=== PATIENT | female | born 1995 | race Caucasian/White ===

== ENCOUNTER 2016-04-28 12:03 | Inpatient (IN) | payer OTHER ==
[~2016-04-28] VITALS: Ht 165.1 cm; Wt 90.1 kg
[2016-04-28 12:17] VITALS: BP 111/78; PULSE 95; RESP 20; Ht 165.1 cm; Wt 90.1 kg
[2016-04-28] MEDS ORDERED: FOLI-49 PO (12:17)
[2016-04-28] MEDS ORDERED: PRENAT PO (12:17)
--- NOTE | 2016-04-28 12:55 | TRIAGE ---
OB Triage Datetime Report Generated by CPN: 04/28/2016 12:55 Datetime: 04/28/2016 12:25 Vaginal Exam Dilatation (cms): 1.0 Effacement (%): 40 Station: -3 Exam By: PLUMMER/KHEMANI Vaginal Bleeding: None Cervix, Consistency: Firm Cervix, Position: Posterior Datetime: 04/28/2016 12:14 Assessment Type: Triage Maternal Assessment Level of Consciousness: Fully Conscious DTR's/Clonus: DTRs 2+; No Clonus Headache: Denies Blurred Vision: No Respiratory Effort: Unlabored; Regular Rhythm; Equal Expansion Nausea/Vomiting: Denies RUQ Epigastric Pain: Denies Lower Extremities Edema: None Degree: None Upper Extremities Edema: None Degree: None Facial Edema: None Fall Risk Assessment History of Falling: (0) No Secondary Diagnosis: (0) No Ambulatory Aid: (0) Bedrest/Nurse Assist IV Therapy: (0) No Gait: (0) Normal/Bedrest/Immobile Mental Status: (0) Oriented to Own Ability Fall Score: 0 Fall Risk Score Definition: No Risk: No action required Datetime: 04/28/2016 12:12 Time of Arrival: 04/28/2016 12:00 EGA: 37.2 Arrived By: Ambulatory Arrived From: Office Chief Complaint: PT SENT INTO EVAL FOR HBP Movement: Present Contractions: Denies/Absent Rupture of Membranes: Denies Vaginal Bleeding: None Vaginal Discharge: Present Recent Sexual Intercouse: Yes Abdominal Trauma: Not Applicable Patient Complaints: None Provider Notified: [facility] Initial Plan: EFM, Datetime: 04/27/2016 07:48 Labor Evaluation Frequency: occassional Monitor Mode: External Quality: Mild Contraction Comments: pt. denies some noted w/ review of strip Heart Rate FHR Baseline Rate: 125 Monitor Mode: External US Variability: Moderate 6-25 bpm Accelerations: 15X15 Decelerations: None Category: Category I Datetime: 04/27/2016 07:39 Resting Tone Jeddo: Relaxed Datetime: 04/27/2016 07:38 Pain Assessment Pain Scale: 4 Pain Presence: Constant Pain Type: Dull Datetime: 04/27/2016 07:16 Maternal Assessment Level of Consciousness: Fully Conscious DTR's/Clonus: DTRs 2+ Headache: Frontal Blurred Vision: No Respiratory Effort: Unlabored Breath Sounds, Left: Clear and Equal Breath Sounds, Right: Clear and Equal Nausea/Vomiting: Denies RUQ Epigastric Pain: Denies Heart Rate FHR Baseline Rate: 125 Variability: Moderate 6-25 bpm Accelerations: 15X15 Pain Assessment Pain Scale: 6 Pain Presence: Constant Pain Type: Dull Pain Location: Head Pain Assessment Comments: pt. states h.a. since yesterday w/ a runny nose. pt. has not take any ty lenol and denies any elevated bp's during her pregnacy. Datetime: 04/27/2016 06:19 Labor Evaluation Frequency: 2-4 Monitor Mode: External Duration (sec)2399: 40-60 Pattern: Normal: <= 5 Contractions in 10 Minutes Resting Tone Jeddo: Relaxed Heart Rate FHR Baseline Rate: 130 Monitor Mode: External US Variability: Moderate 6-25 bpm Accelerations: 15X15 Decelerations: None Category: Category I Datetime: 04/27/2016 06:14 Pain Assessment Pain Scale: 7 Pain Presence: Constant Pain Type: Pressure; Ache Pain Location: Head Pain Relief Measures: Comfort Measures Datetime: 04/27/2016 05:33 Stage of : OB Triage Nausea/Vomiting: Denies Labor Evaluation Frequency: 2-4 Monitor Mode: External Duration (sec)2399: 40-60 Pattern: Normal: <= 5 Contractions in 10 Minutes Resting Tone Jeddo: Relaxed Heart Rate FHR Baseline Rate: 130 Monitor Mode: External US Variability: Moderate 6-25 bpm Accelerations: 15X15 Decelerations: None Category: Category I Comments: baby moving per mom and audible on monitor Pain Assessment Pain Scale: 8 Pain Presence: Constant Pain Type: Pressure; Ache Pain Location: Perineum; Head Pain Relief Measures: Comfort Measures Datetime: 04/27/2016 04:48 Vaginal Exam Dilatation (cms): 0.0 Vaginal Bleeding: None Cervix, Consistency: Soft Cervix, Position: Midposition Datetime: 04/27/2016 04:40 Stage of : OB Triage Maternal Assessment Level of Consciousness: Fully Conscious DTR's/Clonus: DTRs 2+; No Clonus Headache: Frontal Blurred Vision: No Nausea/Vomiting: Present RUQ Epigastric Pain: Denies Facial Edema: None Labor Evaluation Frequency: IRREG Monitor Mode: External Duration (sec)2399: 40-50 Pattern: Normal: <= 5 Contractions in 10 Minutes Resting Tone Jeddo: Relaxed Heart Rate FHR Baseline Rate: 135 Monitor Mode: External US Variability: Moderate 6-25 bpm Accelerations: 15X15 Decelerations: None Category: Category I Datetime: 04/27/2016 04:33 Monitor Mode: External US Datetime: 04/27/2016 04:31 Stage of : OB Triage Maternal Assessment Level of Consciousness: Fully Conscious DTR's/Clonus: DTRs 2+; No Clonus Headache: Denies Blurred Vision: No Respiratory Effort: Unlabored; Regular Rhythm; Equal Expansion Nausea/Vomiting: Denies RUQ Epigastric Pain: Denies Lower Extremities Edema: None Degree: None Upper Extremities Edema: None Degree: None Facial Edema: None Fall Risk Assessment History of Falling: (0) No Secondary Diagnosis: (0) No Ambulatory Aid: (0) Bedrest/Nurse Assist IV Therapy: (0) No Gait: (0) Normal/Bedrest/Immobile Mental Status: (0) Oriented to Own Ability Fall Score: 0 Fall Risk Score Definition: No Risk: No action required Pain Assessment Pain Scale: 8 Pain Presence: Constant Pain Type: Pressure; Ache Pain Location: Perineum; Head Pain Relief Measures: Comfort Measures Datetime: 04/27/2016 04:27 Time of Arrival: 04/27/2016 04:05 EGA: 37.1 Arrived By: Wheelchair Arrived From: Emergency Dept Chief Complaint: HEADACHE Movement: Present Contractions: Denies/Absent Rupture of Membranes: Denies Vaginal Bleeding: None Vaginal Discharge: Denies Recent Sexual Intercouse: Denies Abdominal Trauma: Not Applicable Patient Complaints: Headache; Other Additional Patient Complaints: VAGINAL PRESSURE Time Provider Notified: 04/27/2016 04:50 Provider Notified: [facility] Initial Plan: VITAL SIGNS, EFM. Datetime: 04/27/2016 04:18 Monitor Mode: External Monitor Mode: External US
[2016-04-28] MEDS ORDERED: IBUPROFEN 600 MG TAB PO PRN (13:00)
[2016-04-28] MEDS ORDERED: LACTATED RINGER'S 1,000 ML IV PRN (13:00)
[2016-04-28] MEDS ORDERED: MISOPROSTOL 200 MCG TAB PR PRN (13:00)
[2016-04-28] MEDS: LACTATED RINGER'S 1,000 ML IV SCH ×2 (13:00→21:01)
[2016-04-28] MEDS ORDERED: DINOPROSTONE 10 MG VAG SUPP VAG ONE (13:00)
[2016-04-28] MEDS ORDERED: AMPICILLIN 2 GM/NS (PMX) 100 ML IV ONE (13:00)
[2016-04-28] MEDS ORDERED: OXYTOCIN 30 UNITS/LR 500 ML IV SCH ×2 (13:00)
[2016-04-28] MEDS ORDERED: CARBOPROST 250 MCG INJ IM PRN (13:00)
[2016-04-28] MEDS ORDERED: OXYTOCIN 30 UNITS/LR 500 ML IV PRN (13:00)
[2016-04-28] MEDS ORDERED: BUTORPHANOL 2 MG INJ IV PRN (13:00)
[2016-04-28] MEDS ORDERED: LIDOCAINE 1% (MPF) 30 ML INJ INJ PRN (13:00)
[2016-04-28] MEDS ORDERED: METHYLERGONOVINE 0.2 MG INJ IM PRN (13:00)
[2016-04-28 13:41] LABS: BASOPHILS % 0.4 % (0.0-2.0); EOSINOPHILS # 0.1 10^3/ul (0.0-0.5); EOSINOPHILS % 0.7 % (0.0-7.0); HEMATOCRIT 37.6 % (37.0-47.0); HEMOGLOBIN 12.7 g/dl (12.0-16.0); LYMPHOCYTES % 11.2 % (15.0-51.0); MEAN CORPUSCULAR HGB CONC 33.9 g/dl (32.0-37.0); MEAN CORPUSCULAR VOLUME 88.6 fl (82.0-101.0); MEAN PLATELET VOLUME 10.5 fl (7.4-10.4); MONOCYTE # 0.4 10^3/ul (0.3-0.9); MONOCYTES % 4.5 % (0.0-11.0); NEUTROPHIL # 7.6 10^3/ul (1.6-7.5); NEUTROPHILS % 83.2 % (39.0-77.0); PLATELET COUNT 159 10^3/UL (140-440); RED BLOOD COUNT 4.24 10^6/ul (4.20-5.40); RED CELL DISTRIBUTION WIDTH 13.1 % (11.5-14.5); UNCORRECTED WBC 9.1 10^3/ul (4.8-10.8); WHITE BLOOD COUNT 9.1 10^3/ul (4.8-10.8)
[2016-04-28 13:46] LABS: INR 0.91; PROTIME 12.3 Sec (12.2-14.2)
[2016-04-28 13:47] LABS: PARTIAL THROMBOPLASTIN TIME 24.1 Sec (25.0-35.0)
[2016-04-28 13:51] LABS: CONDITION 1
--- NOTE | 2016-04-28 14:44 | RADRPT ---
PROCEDURE: Limited OB ultrasound CLINICAL INDICATION: Traction was TECHNIQUE: Sonographic evaluation to assess the position was performed. Transabdominal imag ing of the gravid uterus was performed. COMPARISON: No prior exam is available for comparison. FINDINGS: There is a single live intrauterine with a heart rate of 143 bpm. position is cephalic. The placenta is anterior. IMPRESSION: Cephalic presentation. RPTAT: HH .Ayla Campbell MD, MD Date Time Electronically viewed and signed by .Ayla Campbell MD, on 04/28/2016 14:43 .G/
[2016-04-28] MEDS: AMPICILLIN 1 GM/NS (PMX) 50 ML IV SCH ×2 (17:09→21:00)
[2016-04-28] MEDS ORDERED: ACETAMINOPHEN 500 MG TAB PO PRN (23:00)
[2016-04-29] MEDS: AMPICILLIN 1 GM/NS (PMX) 50 ML IV SCH ×6 (01:40→21:40)
[2016-04-29] MEDS ORDERED: DINOPROSTONE 10 MG VAG SUPP VAG ONE (06:30)
[2016-04-29] MEDS: LACTATED RINGER'S 1,000 ML IV SCH ×3 (06:35→22:58)
[2016-04-29] MEDS ORDERED: OXYTOCIN 30 UNITS/LR 500 ML IV SCH (21:30)
[2016-04-30] MEDS: AMPICILLIN 1 GM/NS (PMX) 50 ML IV SCH ×6 (01:33→21:36)
[2016-04-30] MEDS: LACTATED RINGER'S 1,000 ML IV SCH ×2 (08:45→16:54)
[2016-04-30] MEDS ORDERED: FENTAnyl 2MCG/ML-ROPIV 0.2% 100 ML ONE (17:02)
[2016-04-30 17:48] LABS: BASOPHILS % 0.2 % (0.0-2.0); EOSINOPHILS # 0.1 10^3/ul (0.0-0.5); EOSINOPHILS % 0.9 % (0.0-7.0); HEMATOCRIT 36.6 % (37.0-47.0); HEMOGLOBIN 12.5 g/dl (12.0-16.0); LYMPHOCYTES # 1.4 10^3/ul (0.8-2.9); LYMPHOCYTES % 15.2 % (15.0-51.0); MEAN CORPUSCULAR HEMOGLOBIN 30.1 pg (29.0-33.0); MEAN CORPUSCULAR VOLUME 88.4 fl (82.0-101.0); MEAN PLATELET VOLUME 9.7 fl (7.4-10.4); MONOCYTE # 0.4 10^3/ul (0.3-0.9); MONOCYTES % 4.1 % (0.0-11.0); NEUTROPHIL # 7.1 10^3/ul (1.6-7.5); NEUTROPHILS % 79.6 % (39.0-77.0); PLATELET COUNT 168 10^3/UL (140-440); RED BLOOD COUNT 4.14 10^6/ul (4.20-5.40); RED CELL DISTRIBUTION WIDTH 13.6 % (11.5-14.5)
[2016-04-30 17:50] LABS: CONDITION 1
[2016-04-30 18:04] LABS: ALBUMIN 3.1 g/dl (3.3-4.9)
[2016-04-30 18:07] LABS: ALBUMIN/GLOBULIN RATIO 0.93; BILIRUBIN,INDIRECT 1.1 mg/dl (0-1.1); BILIRUBIN,TOTAL 1.1 mg/dl (0.2-1.3); CREATININE 0.41 mg/dl (0.44-1.00); TOTAL PROTEIN 6.4 g/dl (6.1-8.1)
[2016-04-30 18:08] LABS: CALCIUM 8.8 mg/dl (8.4-10.2)
[2016-04-30 18:17] LABS: POTASSIUM 2.8 mmol/L (3.5-5.1)
[2016-04-30] MEDS ORDERED: POTASSIUM CHLORIDE 250 ML IVPB ONE (19:00)
[2016-04-30] MEDS ORDERED: FENTAnyl 2MCG/ML-ROPIV 0.2% 100 ML BAG EPI SCH (19:30)
[2016-04-30] MEDS ORDERED: NALOXONE (0.4 MG/ML) INJ IV PRN (19:30)
[2016-05-01 00:10] LABS: ALBUMIN 3.1 g/dl (3.3-4.9)
[2016-05-01 00:11] LABS: POTASSIUM 3.6 mmol/L (3.5-5.1)
[2016-05-01 00:13] LABS: BILIRUBIN,INDIRECT 1.1 mg/dl (0-1.1); BILIRUBIN,TOTAL 1.1 mg/dl (0.2-1.3); CREATININE 0.45 mg/dl (0.44-1.00); TOTAL PROTEIN 6.2 g/dl (6.1-8.1)
[2016-05-01 00:14] LABS: CALCIUM 8.6 mg/dl (8.4-10.2)
[2016-05-01] MEDS: LACTATED RINGER'S 1,000 ML IV SCH ×4 (00:39→20:36)
[2016-05-01] MEDS: AMPICILLIN 1 GM/NS (PMX) 50 ML IV SCH ×6 (01:00→21:00)
[2016-05-01 06:11] LABS: ALBUMIN 2.8 g/dl (3.3-4.9); POTASSIUM 3.3 mmol/L (3.5-5.1)
[2016-05-01 06:13] LABS: BILIRUBIN,INDIRECT 1.1 mg/dl (0-1.1); BILIRUBIN,TOTAL 1.1 mg/dl (0.2-1.3); CREATININE 0.47 mg/dl (0.44-1.00)
[2016-05-01 06:14] LABS: ALBUMIN/GLOBULIN RATIO 0.9; CALCIUM 8.3 mg/dl (8.4-10.2); TOTAL PROTEIN 5.9 g/dl (6.1-8.1)
[2016-05-01] MEDS ORDERED: POTASSIUM CHLORIDE 250 ML IVPB ONE (07:00)
[2016-05-01] MEDS: DEXTROSE 5%-LR 1,000 ML IV SCH ×3 (07:42→21:32)
[2016-05-01] MEDS ORDERED: DINOPROSTONE 10 MG VAG SUPP VAG ONE (10:00)
[2016-05-01] MEDS ORDERED: ONDANSETRON 4 MG INJ IV STA (17:28)
[2016-05-02] MEDS: AMPICILLIN 1 GM/NS (PMX) 50 ML IV SCH ×2 (01:00→05:00)
[2016-05-02] MEDS: LACTATED RINGER'S 1,000 ML IV SCH (04:36)
[2016-05-02] MEDS: DEXTROSE 5%-LR 1,000 ML IV SCH (05:22)
[2016-05-02 07:06] LABS: BASOPHILS % 0.3 % (0.0-2.0); EOSINOPHILS # 0.1 10^3/ul (0.0-0.5); EOSINOPHILS % 1.6 % (0.0-7.0); HEMATOCRIT 32.2 % (37.0-47.0); LYMPHOCYTES # 1.7 10^3/ul (0.8-2.9); LYMPHOCYTES % 23.9 % (15.0-51.0); MEAN CORPUSCULAR HEMOGLOBIN 30.5 pg (29.0-33.0); MEAN CORPUSCULAR HGB CONC 34.2 g/dl (32.0-37.0); MEAN CORPUSCULAR VOLUME 89.2 fl (82.0-101.0); MEAN PLATELET VOLUME 10.2 fl (7.4-10.4); MONOCYTE # 0.4 10^3/ul (0.3-0.9); MONOCYTES % 6.1 % (0.0-11.0); NEUTROPHIL # 4.7 10^3/ul (1.6-7.5); NEUTROPHILS % 68.1 % (39.0-77.0); PLATELET COUNT 141 10^3/UL (140-440); RED BLOOD COUNT 3.61 10^6/ul (4.20-5.40); RED CELL DISTRIBUTION WIDTH 13.5 % (11.5-14.5)
[2016-05-02 07:16] LABS: CONDITION 1
[2016-05-02 07:17] LABS: ALBUMIN 2.7 g/dl (3.3-4.9); CHLORIDE 107 mmol/L (97-110)
[2016-05-02 07:18] LABS: POTASSIUM 3.8 mmol/L (3.5-5.1); SODIUM 142 mmol/L (135-144)
[2016-05-02 07:20] LABS: ALANINE AMINOTRANSFERASE 22 IU/L (13-69); ALBUMIN/GLOBULIN RATIO 0.96; ALKALINE PHOSPHATASE 119 IU/L (42-121); ANION GAP 13 (8-16); ASPARTATE AMINO TRANSFERASE 16 IU/L (15-46); BILIRUBIN,INDIRECT 0.7 mg/dl (0-1.1); BILIRUBIN,TOTAL 0.7 mg/dl (0.2-1.3); CARBON DIOXIDE 26 mmol/L (21-31); CREATININE 0.45 mg/dl (0.44-1.00); GLUCOSE 75 mg/dl (70-220); TOTAL PROTEIN 5.5 g/dl (6.1-8.1)
[2016-05-02 07:21] LABS: BLOOD UREA NITROGEN < 2 mg/dl (7-20); CALCIUM 8.4 mg/dl (8.4-10.2)
--- NOTE | 2016-05-02 08:29 | PD.PPDC ---
TRACER LATHE SET UP OPERATOR Discharge Instruction Condition Patient Condition: Good Diet Diet: Resume Regular Diet Activity/Restrictions Activity: Normal Activity Restrictions: No Exercising No Lifting No Driving No Sexual Activity Nothing in the Vagina No [place] No Tampons, douche Follow-up Follow-up with Physician: 2, Day/Days SANTA FIORE MD May 02, 2016 08:29
[2016-05-02 09:50] LABS: SCRET 0.45 mg/dl (0.44-1.00)
--- NOTE | 2016-05-02 10:06 | DS ---
Date/Time of Note Date/Time of Note DATE: 05/02/16 TIME: 08:34 Obstetrical Discharge Record Final Diagnosis Final Diagnosis: not delivered Condition on Discharge Physical Assessment Last Vitals: This is a 37-1/2 weeks 1 para 0 who originally was admitted because of the headache suspected of -induced hypertension admitted to hospital underwent Cervidil induction followed with Pitocin induction , since patient,s all laboratory reports were within normal and her symptoms of PIH was negative despite of findings at [facility]. Perinatology consult requested recommendation was follow-up as an outpatient, biophysical profile 2 times per week. And continue care at [facility] Voiding: Yes Bowel Movement: Yes Breast: Soft, non-tender Fundus: Other (37/5weeks uterus) Calf Tenderness: No Patient Condition: Good SANTA FIORE MD May 02, 2016 09:43
== END 2016-05-02 09:28 | disposition home or self-care (01) | DRG 775 ==
LOC: OBT 12:03 → L-D 12:06 → OBT 12:42 → L-D 12:43
PROVIDERS: ADMIT Obstetrics & Gynecology; ATTEND Obstetrics & Gynecology
PROC: 10E0XZZ Delivery of Products of Conception, External Approach (ICD-10-PCS; principal; 2016-04-30)
PROC: 3E0P7GC Introduction of Other Therapeutic Substance into Female Reproductive, Via Natural or Artificial Opening (ICD-10-PCS; 2016-04-30)
DX: O13.4 Gestational [pregnancy-induced] hypertension without significant proteinuria, complicating childbirth (principal); Z37.0 Single live birth; Z3A.37 37 weeks gestation of pregnancy
CPT/HCPCS: 36415; 62319; 76815; 80053; 82575; 82962; 84132; 84156; 84560; 85025; 85610; 85730; 86592; 86900; 86901; 87340; G0463; J0290; J2405; J3010; J3480; J7120; J7121

== ENCOUNTER 2016-05-04 13:28 | Inpatient (IN) | payer OTHER ==
[~2016-05-04] VITALS: Ht 165.1 cm; Wt 95.5 kg
[~2016-05-04 13:28] MED LIST: FOLI-49 PO; PRENAT PO
[2016-05-04 14:16] VITALS: Ht 165.1 cm; Wt 95.5 kg
--- NOTE | 2016-05-04 14:46 | RADRPT ---
PROCEDURE: US OB biophysical profile. CLINICAL INDICATION: decreased movements, PIH TECHNIQUE: Multiple sonographic images of the pelvis were obtained. The images were reviewed on a PACS workstation. COMPARISON: 04/28/2016 FINDINGS: There is a single viable intrauterine gestation. Cardiac activity is present with 128 beats per min [place]. There is a vertex presentation. The placenta is anterior. There is no evidence of placental abruption. There is a normal amount of amniotic fluid with an ABHIJIT = 9.8 cm. Biophysical profile: movement 2/2 tone 2/2. breathing 2/2 ABHIJIT 2/2 Total 12/04 RPTAT: AA . IMPRESSION: Normal biophysical profile. . .Neal Rodriguez MD, MD Date Time Electronically viewed and signed by .Neal Rodriguez MD, MD on 05/04/2016 14:45 .S/
[2016-05-04 15:07] LABS: ADD UMIC NO; URINE BILIRUBIN (Dip) NEGATIVE (NEGATIVE); URINE BLOOD (Dip) NEGATIVE (NEGATIVE); URINE COLOR LT. YELLOW (YELLOW); URINE GLUCOSE (Dip) NEGATIVE (NEGATIVE); URINE KETONES (Dip) NEGATIVE (NEGATIVE); URINE LEUKOCYTE ESTERASE (Dip) NEGATIVE (NEGATIVE); URINE NITRITE (Dip) NEGATIVE (NEGATIVE); URINE TOTAL PROTEIN (Dip) NEGATIVE (NEGATIVE); URINE UROBILINOGEN (Dip) 0.2 E.U./dL (0.1-1.0)
[2016-05-04 15:08] LABS: BASOPHILS % 0.3 % (0.0-2.0); EOSINOPHILS # 0.1 10^3/ul (0.0-0.5); EOSINOPHILS % 1.2 % (0.0-7.0); HEMATOCRIT 33.3 % (37.0-47.0); HEMOGLOBIN 11.4 g/dl (12.0-16.0); LYMPHOCYTES # 1.2 10^3/ul (0.8-2.9); LYMPHOCYTES % 15.4 % (15.0-51.0); MEAN CORPUSCULAR HEMOGLOBIN 30.1 pg (29.0-33.0); MEAN CORPUSCULAR HGB CONC 34.2 g/dl (32.0-37.0); MEAN PLATELET VOLUME 10.7 fl (7.4-10.4); MONOCYTE # 0.3 10^3/ul (0.3-0.9); MONOCYTES % 3.8 % (0.0-11.0); NEUTROPHIL # 6.1 10^3/ul (1.6-7.5); NEUTROPHILS % 79.3 % (39.0-77.0); PLATELET COUNT 163 10^3/UL (140-440); RED BLOOD COUNT 3.78 10^6/ul (4.20-5.40); RED CELL DISTRIBUTION WIDTH 13.3 % (11.5-14.5); UNCORRECTED WBC 7.7 10^3/ul (4.8-10.8); WHITE BLOOD COUNT 7.7 10^3/ul (4.8-10.8)
[2016-05-04 15:13] LABS: INR 0.93; PARTIAL THROMBOPLASTIN TIME 24.8 Sec (25.0-35.0); PROTIME 12.5 Sec (12.2-14.2)
[2016-05-04 15:14] LABS: CONDITION 1
[2016-05-04 15:18] LABS: CHLORIDE 107 mmol/L (97-110)
[2016-05-04 15:19] LABS: SODIUM 142 mmol/L (135-144)
[2016-05-04 15:21] LABS: ALKALINE PHOSPHATASE 125 IU/L (42-121); ASPARTATE AMINO TRANSFERASE 15 IU/L (15-46); BILIRUBIN,INDIRECT 0.3 mg/dl (0-1.1); BILIRUBIN,TOTAL 0.3 mg/dl (0.2-1.3); CARBON DIOXIDE 24 mmol/L (21-31); CREATININE 0.42 mg/dl (0.44-1.00); TOTAL PROTEIN 5.9 g/dl (6.1-8.1)
[2016-05-04 15:22] LABS: ALANINE AMINOTRANSFERASE 19 IU/L (13-69); CALCIUM 8.1 mg/dl (8.4-10.2); GLUCOSE 95 mg/dl (70-220); URIC ACID 3.9 mg/dl (3.1-7.9)
[2016-05-04 15:23] LABS: ALBUMIN/GLOBULIN RATIO 1.03; ANION GAP 14 (8-16); BLOOD UREA NITROGEN < 2 mg/dl (7-20); POTASSIUM 2.8 mmol/L (3.5-5.1)
[2016-05-04] MEDS ORDERED: LACTATED RINGER'S 1,000 ML IV SCH (16:30)
[2016-05-04] MEDS ORDERED: POTASSIUM CHLORIDE 50 ML IVPB ONE (17:30)
[2016-05-05] MEDS: LACTATED RINGER'S 1,000 ML IV SCH ×4 (05:40→22:21)
[2016-05-05 15:03] VITALS: BP 120/84; PULSE 84; RESP 20
--- NOTE | 2016-05-05 15:22 | PERINOTE ---
Date/Time of Note Date/Time of Note DATE: 05/05/16 TIME: 15:15 Assessment/Recommendations Other Assessments Term IUP Preeclampsia without severe features Hypokalemia, likely due to diarrhea Recommendations: I feel that this patient should be delivered at this time. If a reasonable trial of induction is not successful, this could be by . OB Subjective Free Text/Dictaton Patient admitted with elevated BP, found to have elevated 24 hour urine protein excretion, therefore meeting criteria for a diagnosis of preeclampsia. Patient states that she has had multiple attempts at labor induction without success, question has been raised about delivery. patient also found to have hypokalemia after an episode of diarrhea on 05/03/16. This has resolved with minimal IV potassium and with resolution of the diarrhea. HD# 2 IUP @ 38W2D Current Medications Current Medications Lactated Ringer's (Lr) 1,000 ml @ 125 mls/hr Q8H IV Last administered on t 13:40; Admin Dose 125 MLS/HR; Start 05/04/16 at 18:35 Past Medical History Medical History: no pertinent history Surgical History: no surgical history MOLD FINISHER History: no pertinent MOLD FINISHER history Para: 0 : 3 LMP (Females 10-50): Family History Significant Family History: no pertinent family hx Social History Smoker: non-smoker Alcohol: none Drugs: none OB Admission Exam Physical Exam Vitals: Vital Signs Date Time Temp Pulse Resp B/P Pulse Ox O2 Delivery O2 Flow Rate FiO2 05/05/16 15:03 98.0 84 20 120/84 Max BP since admission is 145/93 Heart: Rhythm Normal Lungs: Clear Abdomen: WNL Extremities: Normal Reflexes: Normal Heart Rate: 120's Accelerations: Accelerations Present Decelerations: No Decelerations Varibility: Marked Contractions on Admission: 6-10 Minutes Apart Last 72 hours Lab Results CBC & BMP 05/04/16 14:15 05/04/16 16:00 05/05/16 06:25 Liver Function Test 05/04/16 14:15 Alanine Aminotransferase (ALT/SGPT) 19 Albumin 3.0 L Alkaline Phosphatase 125 H Aspartate Amino Transf (AST/SGOT) 15 Direct Bilirubin 0.00 Total Protein 5.9 L Copies To: CC: SANTA FIORE MD, MARIE H MD May 05, 2016 15:22
[2016-05-05] MEDS ORDERED: IBUPROFEN 600 MG TAB PO PRN (15:30)
[2016-05-05] MEDS ORDERED: BUTORPHANOL 2 MG INJ IV PRN ×2 (15:30)
[2016-05-05] MEDS ORDERED: CARBOPROST 250 MCG INJ IM PRN (15:30)
[2016-05-05] MEDS ORDERED: AMPICILLIN 2 GM/NS (PMX) 100 ML IV ONE (15:30)
[2016-05-05] MEDS ORDERED: MISOPROSTOL 200 MCG TAB PR PRN (15:30)
[2016-05-05] MEDS ORDERED: ACETAMINOPHEN/CODEINE #3 TAB PO PRN (15:30)
[2016-05-05] MEDS ORDERED: OXYTOCIN 30 UNITS/LR 500 ML IV SCH ×2 (15:30)
[2016-05-05] MEDS ORDERED: LIDOCAINE 1% (MPF) 30 ML INJ INJ PRN (15:30)
[2016-05-05] MEDS ORDERED: OXYTOCIN 30 UNITS/LR 500 ML IV PRN (15:30)
[2016-05-05] MEDS ORDERED: METHYLERGONOVINE 0.2 MG INJ IM PRN (15:30)
[2016-05-05] MEDS ORDERED: LACTATED RINGER'S 1,000 ML IV PRN (16:00)
[2016-05-05] MEDS: AMPICILLIN 1 GM/NS (PMX) 50 ML IV SCH (20:08)
[2016-05-06] VITALS (12 sets, daily range): BP systolic 100–132; BP diastolic 54–92; PULSE 48–72; RESP 18–20
[2016-05-06] MEDS: LACTATED RINGER'S 1,000 ML IV SCH ×2 (00:26→08:05)
[2016-05-06] MEDS: AMPICILLIN 1 GM/NS (PMX) 50 ML IV SCH ×4 (00:27→11:30)
[2016-05-06 07:05] LABS: BASOPHILS % 0.4 % (0.0-2.0); EOSINOPHILS # 0.1 10^3/ul (0.0-0.5); EOSINOPHILS % 1.2 % (0.0-7.0); HEMATOCRIT 34.8 % (37.0-47.0); LYMPHOCYTES # 1.2 10^3/ul (0.8-2.9); MEAN CORPUSCULAR HEMOGLOBIN 30.3 pg (29.0-33.0); MEAN CORPUSCULAR HGB CONC 34.3 g/dl (32.0-37.0); MEAN CORPUSCULAR VOLUME 88.1 fl (82.0-101.0); MEAN PLATELET VOLUME 10.7 fl (7.4-10.4); MONOCYTE # 0.3 10^3/ul (0.3-0.9); MONOCYTES % 3.7 % (0.0-11.0); NEUTROPHIL # 6.6 10^3/ul (1.6-7.5); NEUTROPHILS % 79.7 % (39.0-77.0); PLATELET COUNT 161 10^3/UL (140-440); RED BLOOD COUNT 3.95 10^6/ul (4.20-5.40); RED CELL DISTRIBUTION WIDTH 13.3 % (11.5-14.5); UNCORRECTED WBC 8.3 10^3/ul (4.8-10.8); WHITE BLOOD COUNT 8.3 10^3/ul (4.8-10.8)
[2016-05-06 07:09] LABS: CONDITION 1
[2016-05-06 07:13] LABS: ALBUMIN 3.1 g/dl (3.3-4.9); CHLORIDE 104 mmol/L (97-110)
[2016-05-06 07:14] LABS: POTASSIUM 3.5 mmol/L (3.5-5.1); SODIUM 141 mmol/L (135-144)
[2016-05-06 07:16] LABS: ALBUMIN/GLOBULIN RATIO 1.03; ALKALINE PHOSPHATASE 148 IU/L (42-121); ANION GAP 15 (8-16); ASPARTATE AMINO TRANSFERASE 20 IU/L (15-46); BILIRUBIN,INDIRECT 1.2 mg/dl (0-1.1); BILIRUBIN,TOTAL 1.2 mg/dl (0.2-1.3); CARBON DIOXIDE 26 mmol/L (21-31); CREATININE 0.42 mg/dl (0.44-1.00); TOTAL PROTEIN 6.1 g/dl (6.1-8.1)
[2016-05-06 07:17] LABS: ALANINE AMINOTRANSFERASE 21 IU/L (13-69); CALCIUM 8.5 mg/dl (8.4-10.2); GLUCOSE 63 mg/dl (70-220); URIC ACID 4.5 mg/dl (3.1-7.9)
[2016-05-06 07:25] LABS: BLOOD UREA NITROGEN < 2 mg/dl (7-20)
[2016-05-06] MEDS ORDERED: CEFAZOLIN 2 GM/50 ML (PMX) 50 ML IVPB ONE ×2 (08:52→09:00)
[2016-05-06] MEDS ORDERED: FENTAnyl 50 MCG/ML VIAL ONE (10:22)
[2016-05-06] MEDS ORDERED: morphine SULFATE/PF (10 MG/10 ML) INJ ONE (10:22)
[2016-05-06] MEDS ORDERED: PHENYLephrine (100 MCG/ML) 5ML SYG ONE (10:22)
[2016-05-06] MEDS ORDERED: DEXAMETHASONE 4 MG/ML 1 ML INJ ONE (10:41)
[2016-05-06] MEDS ORDERED: ONDANSETRON 4 MG INJ ONE (10:41)
[2016-05-06] MEDS ORDERED: CEFAZOLIN 1 GM INJ ONE (10:51)
--- NOTE | 2016-05-06 10:53 | HP ---
Date/Time of Note Date/Time of Note DATE: 05/06/16 TIME: 10:33 OB - History Hx of Present Free Text/Dictation This is a 20 years old female 3 para Nitro to [facility] last one at 14 weeks in 2013 admitted to [facility] at 38 weeks 3 days in labor, patient underwent labor augmentation with no cervical change, perinatologist suggested if induction of labor fails delivery is recommended ,since there has been no cervical change with Pitocin induction during the last 18 hours patient given the option of further trial of labor versus delivery patient declined further trial of labor and indicated since all attempts for induction has not been successful on her first admission when she was referred from clinic with a diagnosis of PIH which later on symptomatic PIH was ruled out and patient returned to the care of the [facility] this time trial of labor with Pitocin has not been successful and patient declines further trial and requested delivery which was recommended by the perinatologist as well, now she is being prepared to undergo a primary for failed induction patient is aware of complication of the surgery including bowel bladder injury wound infection hemorrhage and hematoma and she would like to proceed with the procedure Chief Complaint: failed induction Estimated Due Date: May 17, 2016 : 3 Para: 0 Spontaneous : 2 Care: Good Care Ultrasounds: Normal mid trimester US Obstetrical Complications: Pre-eclampsia, Gestational Hypertension Medical Complications: None Past Family/Social History * Past Medical, Surgical, Family and Obstetric Histories reviewed from chart. Rubella: immune RPR/VDRL: Negative GBS Status: Negative HBsAG: Negative OB Admission Exam Vital Signs Vital Signs Vital Signs Date Time Temp Pulse Resp B/P Pulse Ox O2 Delivery O2 Flow Rate FiO2 05/05/16 15:03 98.0 84 20 120/84 Physical Exam HEENT: WNL Lungs: Clear, Equal Abdomen: WNL Extremities: Normal Reflexes: Normal Cervical Dilatation: None Effacement: 25% Station: -2 Membranes: Intact Accelerations: Accelerations Present Decelerations: No Decelerations Varibility: Moderate Contractions on Admission: 6-10 Minutes Apart Intensity: Moderate Last 72 hours Lab Results CBC & BMP 05/04/16 14:15 05/04/16 16:00 05/05/16 06:25 05/06/16 06:22 Liver Function Test 05/04/16 14:15 05/06/16 06:22 Alanine Aminotransferase (ALT/SGPT) 19 21 Albumin 3.0 L 3.1 L Alkaline Phosphatase 125 H 148 H Aspartate Amino Transf (AST/SGOT) 15 20 Direct Bilirubin 0.00 0.00 Total Protein 5.9 L 6.1 SANTA FIORE MD May 06, 2016 10:50
[2016-05-06] MEDS ORDERED: ZOLPIDEM 5 MG TAB PO PRN (12:00)
[2016-05-06] MEDS ORDERED: ONDANSETRON 4 MG INJ IV PRN (12:00)
[2016-05-06] MEDS ORDERED: PROCHLORPERAZINE 10 MG INJ IV PRN (12:00)
[2016-05-06] MEDS ORDERED: HYDROmorphONE 1 MG/ML SYG IV PRN (12:00)
[2016-05-06] MEDS ORDERED: NALOXONE (0.4 MG/ML) INJ IV PRN (12:00)
[2016-05-06] MEDS ORDERED: DIPHENHYDRAMINE 50 MG INJ IV PRN (12:00)
--- NOTE | 2016-05-06 12:02 | OPPN ---
Date/Time of Note Date/Time of Note DATE: 05/06/16 TIME: 11:56 Operative/Procedure Note 38 weeks 3 days failed induction declined suspected PIH declined further trial of labor requests delivery Pre-Operative Diagnosis Same as above Post-Operative Diagnosis Same as above Procedure Primary Surgeon: SANTA FIORE MD Shoe Turner: DIANE ZAMORA MD Anesthesiologist: CHECO MEDINA DO Findings Live baby girl 8 and 9 Estimated blood loss: other (600 mL) Specimens: Not Applicable Complications: None Anesthesia type: spinal SANTA FIORE MD May 06, 2016 12:02
--- NOTE | 2016-05-06 12:35 | DELSUM ---
Delivery Summary A-C Datetime Report Generated by CPN: 05/06/2016 12:35 DELIVERY PERSONNEL Moss Gatherer: Ghukasystorm, Calli MATERNAL INFORMATION Delivery Anesthesia: Spinal Medications in Delivery: 30 UNITS OF PIT IN 500 CC LR Estimated Blood Loss (ml): 900 Placenta Cultured: No Maternal Complications: None Other Maternal Complications: PIH LABOR SUMMARY EDC: 05/17/2016 00:00 No. Babies in Womb: 1 Attempted: No Labor Anesthesia: None LABOR INFORMATION Reason for Induction: Gest. HTN/PreEclam/Eclamp Cervical Ripening Agents: Cervidil Cervical Ripening Agents: Cervidil (Annotations: CERVIDIL #2 PLACED IN THE POSTERIOR FORNIX OF THE VAGINA) Other Ripening Agents: cervidil Oxytocin: Augmentation Group B Beta Strep: Negative (Annotations: NEGATIVE LAB RESULT ON 04/14/2016 COLLECTION. PT. HAD POSITIVE GBS IN URINE IN OFFICE WAS TREATED WITH ABX. RECORD NOTATION STATES TO TREAT IN LABOR) Group B Beta Strep: Positive Antibiotics # of Doses: 6 Antibiotics Time of Last Dose: 1100 Steroids Given: None Reason Steroids Not Administered: Not Applicable MEMBRANES Membranes Rupture Method: Artificial Rupture of Membranes: 05/06/2016 11:12 Length of Rupture (hr): 0.02 Amniotic Fluid Color: Clear Amniotic Fluid Amount: Small Amniotic Fluid Odor: Normal STAGES OF LABOR Stage 3 hr: 0 Stage 3 min: 1 CSECTION DELIVERY Primary Indication: Failed Induction CSection Urgency: Elective CSection Incidence: Primary Labor: No Labor Elective: Elective CSection Incision: Lower Uterine Transverse BABY A INFORMATION Delivery Date/Time: 05/06/2016 11:13 Method of Delivery: Born in Route : No : N/A Forceps: N/A Vacuum Extraction: N/A Shoulder Dystocia : N/A SHOULDER DYSTOCIA BABY A Infant Delivery Date/Time: 05/06/2016 11:13 PRESENTATION/POSITION BABY A Presentation: Cephalic Presentation: Cephalic Cephalic Presentation: Vertex Vertex Position: Left Occipital Anterior Breech Presentation: N/A PLACENTA INFORMATION BABY A Placenta Delivery Time : 05/06/2016 11:14 Placenta Method of Delivery: Manual Removal Placenta Status: Delivered SCORES BABY A Heart Rate 1 min: >100 bpm Resp Effort 1 min: Good Cry Reflex Irritability 1 min: Cough/Sneeze/Pulls Away Muscle Tone 1 min: Active Motion Color 1 min: Blue/Pale Resuscitation Effort 1 min: Tactile Stimulation SCORE 1 MIN: 8 Heart Rate 5 min: >100 bpm Resp Effort 5 min: Good Cry Reflex Irritability 5 min: Cough/Sneeze/Pulls Away Muscle Tone 5 min: Active Motion Color 5 min: Body [place], Extremit Blue Resuscitation Effort 5 min: Tactile Stimulation SCORE 5 MIN: 9 INFORMATION BABY A Gestational Age at Delivery: 38.3 Gestational Status: Early Term- 37- 38.6 Weeks Outcome : Liveborn Condition : Stable Infant Sex: Female IDENTIFICATION/MEDS BABY A ID Band Number: [id number] ID Band Location: Right Leg; Left Arm Sensor Applied: Yes Sensor Number: [id number] Sensor Location : Cord Clamp Vitamin K Given : Not Given Erythromycin Given: Not Given WEIGHT/LENGTH BABY A Infant Birthweight (gm): 3200 Weight (lb): 7 Weight (oz): 1 Infant Length (in): 19.50 Infant Length (cm): 49.53 CORD INFORMATION BABY A No. Cord Vessels: 3 Nuchal Cord : Around Neck x1, Loose Cord Blood Taken: Yes Suction: Mouth; Nose ASSESSMENT BABY A Infant Complications: None Physical Findings at Delivery: Within Normal Limits Respirations: Appears Normal Artificial Stone Setter/ALS Called : No Care By: Ingris COOK RN
[2016-05-06] MEDS ORDERED: MISOPROSTOL 200 MCG TAB PR PRN (14:30)
[2016-05-06] MEDS ORDERED: LANOLIN 7 GM TUBE TOP PRN (14:30)
[2016-05-06] MEDS ORDERED: OXYTOCIN 30 UNITS/LR 500 ML IV PRN (14:30)
[2016-05-06] MEDS ORDERED: ACETAMINOPHEN/CODEINE #3 TAB PO PRN (14:30)
[2016-05-06] MEDS ORDERED: METHYLERGONOVINE 0.2 MG INJ IM PRN (14:30)
[2016-05-06] MEDS ORDERED: CARBOPROST 250 MCG INJ IM PRN (14:30)
[2016-05-06] MEDS ORDERED: CEFAZOLIN 1 GM/50 ML (PMX) 50 ML IVPB SCH (14:30)
[2016-05-06] MEDS ORDERED: OXYCODONE/ACETAMINOPHEN (5/325) TAB PO PRN ×2 (14:30)
--- NOTE | 2016-05-06 14:37 | OPRPT ---
Intraop Record Datetime Report Generated by CPN: 05/06/2016 14:36 Datetime: 05/06/2016 11:22 OR Number: 2 TIMES/PROCEDURE Arrive OR: 05/06/2016 10:18 Depart OR: 05/06/2016 12:05 Anesthesia Start: 05/06/2016 10:20 Anesthesia End: 05/06/2016 12:00 Surgery Start: 05/06/2016 11:08 Surgery End: 05/06/2016 11:48 Preoperative Dx: PRIMARY SECTION DUE TO FAILED INDUCTION Surgical Procedure: Section Postoperative Dx: PRIMARY SECTION C/S Decision Time: 05/06/2016 08:30 C/S Decision to Incision (min): 158 Uterine Incision: 05/06/2016 11:12 PERSONNEL Surgeon: Paulette Pfeiffer Scrub: Pat Hoskins Anesthesia Care Provider: Gregory Chiu Infant Care: See Delivery Summary for Infant Care Providers Others in OR: FOB, BABY NURSE AND RT Anesthesia Type: Spinal ASA Level: II RISK FOR INJURY Mode of Arrival: Ambulate Procedure Time Out: Correct Patient Identity; Accurate Procedure Consent Form; Agreement on Procedu re to be Done; Correct Patient Position; Addressed Need to Administer Antibiotics or Fluids for Irri gation; Safety Precautions Based on Patient History or Medication Use; Allergies Reviewed Preoperative Information: Preoperative Checklist Reviewed; Allergies Reviewed; NPO Status Verified RISK FOR ANXIETY/KNOW DEFICIT Emotional Status: Calm/Relaxed Interventions: Provided Education Based on Age and Identified Needs; Communicated Patient Concerns to Appropriate Members of the Health Care Team; Explained Sequence of Events and Perioperative Routi ne; Evaluated Response to Instructions RISK FOR PAIN Pain Teaching: Instructed on Pain Scale Pain Scale: 0.0 PREOPERATIVE OUTCOMES Preoperative Outcomes: Verbalizes/Indicates Decreased Anxiety, Ability to [place], Understanding of Pr ocedure and Sequence of Events. Questions Answered; Demonstrates Adequate Pain Management; Verbaliz es Comfort Related to Transfer/Transport RISK FOR INFECTION Skin Pre-Operative Site: Intact Clip: Clip Clip Location: LOWER ABDOMEN Prep By: A ARGENIS Catheter: Anguiano Catheter Size: 16 Catheter Inserted By: A ARGENIS Surgical Wound Class: [id number] Dressing Type: Secured Gauze Other Dressing Types: ABD, TELFA Risk for Impaired Skin Integrity Position in OR: Supine Bony Prominences Protection: Arms Tucked/Padded Positioning Devices: N/A Risk for Hypothermia Warming Interventions: Warm [place](s); Warm Irrigation Risk for Injury Safety Straps Applied: Legs Sequential Compression Device: Yes Electrosurgical Unit: Yes Electrosurgical Unit Number: [id number] Bipolar Number: [id number] Coag Number: 60 Cut Number: 60 1st Count Sponge Count: Correct Needle Count: Correct Blade Count: Correct Instrument Count: Correct 2nd Count Sponge Count: Correct Needle Count: Correct Blade Count: Correct Instrument Count: Not Done 3rd Count Sponge Count: Correct Needle Count: Correct Blade Count: Correct Instrument Count: Not Done Final Count Sponge Count 4: Correct Needle Count 4: Correct Blade Count 4: Correct Instrument Count 4: Correct Surgeon Acknowledged Count: Yes Final Count Resolution: Count Correct Intraoperative Data Equipment: Non-Invasive Blood Pressure; Pulse Oximeter; EKG Blood Products Given: N/A Implants/Prosthesis Implants/Prosthesis: N/A Grafts: N/A Irrigation Irrigants: Sterile H2O Irrigation Amount: 1000 Specimens Specimens: N/A Cultures Cultures: N/A X-Ray X-Ray Taken: No Postoperative Skin: Warm; Dry Pain Scale: 0 Condition: Awake; Alert Temperature: 98.0 Operative Outcomes: Patient's Surgery Performed Using Aseptic Technique and in a Manner to Prevent Cross-Contamination; Skin Remains Smooth, Intact, Non-reddened, Non-irritated, Free of Bruising; Cor e Body Temperature Remains in Expected Range Transfer To: L_D Other: RECOVERY Datetime: 04/27/2016 04:27 Food Allergies/Reactions: PT. DENIES Latex Allergies/Reactions: No Latex Allergies Datetime: 03/20/2016 14:29 Drug Allergies/Reactions: No Known Drug Allergies/NE (01/01/2012)
--- NOTE | 2016-05-06 14:37 | DELSUM ---
Delivery Summary A-C Datetime Report Generated by CPN: 05/06/2016 14:36 DELIVERY PERSONNEL Director Physical: Ghukasystorm, Calli MATERNAL INFORMATION Delivery Anesthesia: Spinal Medications in Delivery: 30 UNITS OF PIT IN 500 CC LR Estimated Blood Loss (ml): 900 Placenta Cultured: No Maternal Complications: None Other Maternal Complications: PIH LABOR SUMMARY EDC: 05/17/2016 00:00 No. Babies in Womb: 1 Attempted: No Labor Anesthesia: None LABOR INFORMATION Reason for Induction: Gest. HTN/PreEclam/Eclamp Cervical Ripening Agents: Cervidil Cervical Ripening Agents: Cervidil (Annotations: CERVIDIL #2 PLACED IN THE POSTERIOR FORNIX OF THE VAGINA) Other Ripening Agents: cervidil Oxytocin: Augmentation Group B Beta Strep: Negative (Annotations: NEGATIVE LAB RESULT ON 04/14/2016 COLLECTION. PT. HAD POSITIVE GBS IN URINE IN OFFICE WAS TREATED WITH ABX. RECORD NOTATION STATES TO TREAT IN LABOR) Group B Beta Strep: Positive Antibiotics # of Doses: 6 Antibiotics Time of Last Dose: 1100 Steroids Given: None Reason Steroids Not Administered: Not Applicable MEMBRANES Membranes Rupture Method: Artificial Rupture of Membranes: 05/06/2016 11:12 Length of Rupture (hr): 0.02 Amniotic Fluid Color: Clear Amniotic Fluid Amount: Small Amniotic Fluid Odor: Normal STAGES OF LABOR Stage 3 hr: 0 Stage 3 min: 1 CSECTION DELIVERY Primary Indication: Failed Induction CSection Urgency: Elective CSection Incidence: Primary Labor: No Labor Elective: Elective CSection Incision: Lower Uterine Transverse BABY A INFORMATION Delivery Date/Time: 05/06/2016 11:13 Method of Delivery: Born in Route : No : N/A Forceps: N/A Vacuum Extraction: N/A Shoulder Dystocia : N/A SHOULDER DYSTOCIA BABY A Infant Delivery Date/Time: 05/06/2016 11:13 PRESENTATION/POSITION BABY A Presentation: Cephalic Presentation: Cephalic Cephalic Presentation: Vertex Vertex Position: Left Occipital Anterior Breech Presentation: N/A PLACENTA INFORMATION BABY A Placenta Delivery Time : 05/06/2016 11:14 Placenta Method of Delivery: Manual Removal Placenta Status: Delivered SCORES BABY A Heart Rate 1 min: >100 bpm Resp Effort 1 min: Good Cry Reflex Irritability 1 min: Cough/Sneeze/Pulls Away Muscle Tone 1 min: Active Motion Color 1 min: Blue/Pale Resuscitation Effort 1 min: Tactile Stimulation SCORE 1 MIN: 8 Heart Rate 5 min: >100 bpm Resp Effort 5 min: Good Cry Reflex Irritability 5 min: Cough/Sneeze/Pulls Away Muscle Tone 5 min: Active Motion Color 5 min: Body [place], Extremit Blue Resuscitation Effort 5 min: Tactile Stimulation SCORE 5 MIN: 9 INFORMATION BABY A Gestational Age at Delivery: 38.3 Gestational Status: Early Term- 37- 38.6 Weeks Outcome : Liveborn Condition : Stable Infant Sex: Female IDENTIFICATION/MEDS BABY A ID Band Number: [id number] ID Band Location: Right Leg; Left Arm Sensor Applied: Yes Sensor Number: [id number] Sensor Location : Cord Clamp Vitamin K Given : Not Given Erythromycin Given: Not Given WEIGHT/LENGTH BABY A Infant Birthweight (gm): 3200 Weight (lb): 7 Weight (oz): 1 Infant Length (in): 19.50 Infant Length (cm): 49.53 CORD INFORMATION BABY A No. Cord Vessels: 3 Nuchal Cord : Around Neck x1, Loose Cord Blood Taken: Yes Suction: Mouth; Nose ASSESSMENT BABY A Infant Complications: None Physical Findings at Delivery: Within Normal Limits Respirations: Appears Normal Pack Puller/ALS Called : No Care By: Ingris COOK RN
--- NOTE | 2016-05-06 16:30 | OPR ---
DATE OF OPERATION: 05/06/2016 PREOPERATIVE DIAGNOSES: 1. Intrauterine at 38 weeks and 3 days. suspected PIH. 2. Failed induction after over 30 hours of induction. 3. The patient declined further trial of labor. POSTOPERATIVE DIAGNOSES: 1. Intrauterine at 38 weeks and 3 days. suspected PIH. 2. Failed induction after over 30 hours of induction. 3. The patient declined further trial of labor. OPERATION PERFORMED: Primary transverse low cervical section. SURGEON: Santa Pfeiffer MD. TUTORING CLINICIAN: Thais Felix MD ANESTHESIA: Spinal. ANESTHESIOLOGIST: Gregory Chiu DO FINDINGS: Live baby girl with the 8 and 9. DETAILS OF THE PROCEDURE: Under satisfactory spinal anesthesia, the patient was prepped and draped and placed in supine position, tilted to the left. Pfannenstiel incision was made, incision carried through the subcutaneous tissue. Bleeders brought under control with electrocautery. Fascia incised to the length of the incision. Rectus muscles divided in midline, peritoneum exposed and entered through a transverse incision. Exploration of abdomen. Gravid uterus, normal appearing tubes and ovaries. Bladder flap was developed. Transverse incision was made in the lower segment of the uterus. Amniotic sac ruptured. Clear amniotic fluid noted. Live baby girl was delivered from unengaged vertex with a nuchal cord x1 around the baby's neck. Nasal oropharyngeal suction was performed. Baby handed to the team for immediate attention. The patient received 20 units of Pitocin. Placenta delivered manually intact. Uterine cavity cleaned with wet sponge and drainage established. Uterus closed in 2 layers using Monocryl #1 in continuous fashion. Peritoneal cavity was irrigated with warm saline. Sponge, needle and instrument reported to be correct. Abdominal peritoneum closed with 2-0 chromic catgut continuously. Rectus muscle approximated with few interrupted 2- 0 chromic catgut. Fascia closed with #1 PDS in a continuous fashion. Subcutaneous tissue approximated with interrupted 2-0 chromic catgut. Skin closed with sean. Estimated blood loss 600 mL. Urine bag contained 200 mL of clear urine. Patient tolerated procedure well, transferred to recovery room in a good condition. Dictated By: SANTA JENSEN/XOCHITL Conf#: [id number] DID#: [id number] [facility]
[2016-05-06] MEDS: OXYTOCIN 30 UNITS/LR 500 ML IV SCH ×3 (16:50→22:46)
[2016-05-07] VITALS: BP 115/72; PULSE 58; RESP 18
[2016-05-07] MEDS: OXYTOCIN 30 UNITS/LR 500 ML IV SCH ×2 (02:21→03:20)
[2016-05-07 03:55] VITALS: BP 109/57; PULSE 74; RESP 18
[2016-05-07] MEDS: HYDROmorphONE 1 MG/ML SYG IV PRN ×2 (07:53→10:52)
[2016-05-07 08:12] LABS: BASOPHILS % 0.5 % (0.0-2.0); EOSINOPHILS # 0.1 10^3/ul (0.0-0.5); EOSINOPHILS % 0.6 % (0.0-7.0); HEMATOCRIT 29.2 % (37.0-47.0); HEMOGLOBIN 9.9 g/dl (12.0-16.0); LYMPHOCYTES # 1.7 10^3/ul (0.8-2.9); LYMPHOCYTES % 15.3 % (15.0-51.0); MEAN CORPUSCULAR HEMOGLOBIN 30.1 pg (29.0-33.0); MEAN CORPUSCULAR HGB CONC 33.7 g/dl (32.0-37.0); MEAN CORPUSCULAR VOLUME 89.2 fl (82.0-101.0); MEAN PLATELET VOLUME 11.2 fl (7.4-10.4); MONOCYTE # 0.7 10^3/ul (0.3-0.9); MONOCYTES % 5.9 % (0.0-11.0); NEUTROPHIL # 8.6 10^3/ul (1.6-7.5); NEUTROPHILS % 77.7 % (39.0-77.0); PLATELET COUNT 174 10^3/UL (140-440); RED BLOOD COUNT 3.27 10^6/ul (4.20-5.40); RED CELL DISTRIBUTION WIDTH 13.5 % (11.5-14.5); UNCORRECTED WBC 11.1 10^3/ul (4.8-10.8); WHITE BLOOD COUNT 11.1 10^3/ul (4.8-10.8)
[2016-05-07 08:22] LABS: CONDITION 1
[2016-05-07 08:39] VITALS: BP 106/69; PULSE 80; RESP 20
[2016-05-07] MEDS: SENNA/DOCUSATE NA (8.6MG/50MG) TAB PO SCH ×2 (09:05→21:16)
[2016-05-07 13:06] VITALS: BP 115/73; PULSE 90; RESP 20
[2016-05-07] MEDS: IBUPROFEN 600 MG TAB PO SCH ×3 (13:57→23:26)
[2016-05-07] MEDS: ACETAMINOPHEN/CODEINE #3 TAB PO PRN (13:57)
[2016-05-07 15:58] VITALS: BP 114/75; PULSE 69; RESP 19
--- NOTE | 2016-05-07 18:36 | PN ---
Date/Time of Note Date/Time of Note DATE: 05/07/16 TIME: 18:34 OB Subjective Subjective Subjective Post day 1 Vital sign a stable afebrile abdomen soft bowel sounds present lochia normal stringently normal nation recommended. Laboratory Tests Test 05/07/16 07:07 Basophils # 0.010^3/ul Basophils % 0.5% Blood Morphology Comment Eosinophils # 0.110^3/ul Eosinophils % 0.6% Hematocrit 29.2% Hemoglobin 9.9g/dl Lymphocytes # 1.710^3/ul Lymphocytes % 15.3% Mean Corpuscular Hemoglobin 30.1pg Mean Corpuscular Hemoglobin Concent 33.7g/dl Mean Corpuscular Volume 89.2fl Mean Platelet Volume 11.2fl Monocytes # 0.710^3/ul Monocytes % 5.9% Neutrophils # 8.610^3/ul Neutrophils % 77.7% Nucleated Red Blood Cells # 0.010^3/ul Nucleated Red Blood Cells % 0.0/100WBC Platelet Count 45136^3/UL Red Blood Count 3.2710^6/ul Red Cell Distribution Width 13.5% White Blood Count 11.110^3/ul Current Medications Medications (Trade) Dose Ordered Sig/Evy Route PRN Reason Start Time Stop Time Status Last Admin Dose Admin Lactated Ringer's 1,000 ml @ 0 mls/hr Q0M IV 05/04/16 16:30 05/04/16 18:40 DC 05/04/16 17:33 Potassium Chloride 50 ml @ 50 mls/hr ONCE ONCE IVPB 05/04/16 17:30 05/04/16 18:29 DC 05/04/16 17:33 Lactated Ringer's 1,000 ml @ 125 mls/hr Q8H IV 05/04/16 18:35 05/06/16 14:25 DC 05/06/16 08:05 Oxytocin/Lactated Ringer's 500 ml @ 0 mls/hr Q0M IV 05/05/16 15:30 05/06/16 14:25 DC 05/05/16 15:48 Ampicillin 100 ml @ 100 mls/hr ONCE ONCE IV 05/05/16 15:30 05/05/16 16:29 DC 05/05/16 15:56 Ampicillin (Ampicillin 1 Gm/ NS (Pmx)) 50 ml @ 100 mls/hr Q4H IV 05/05/16 19:30 05/06/16 14:25 DC 05/06/16 08:05 Butorphanol Tartrate (Stadol) 1 mg Q2H PRN IV PAIN 05/05/16 15:30 05/06/16 14:25 DC Butorphanol Tartrate (Stadol) 2 mg Q2H PRN IV PAIN 05/05/16 15:30 05/06/16 14:25 DC Lidocaine 30 ml 30 ml ONCE PRN INJ EPISIOTOMY/TEARING 05/05/16 15:30 05/06/16 14:25 DC Oxytocin/Lactated Ringer's 500 ml @ 125 mls/hr ONCE -MAY REPEAT X1 IV 05/05/16 15:30 05/06/16 14:25 DC 05/06/16 12:52 Ibuprofen (Motrin) 600 mg ONCE PRN PO Mild Pain (Pain Score 1-3) 05/05/16 15:30 05/06/16 14:25 DC Acetaminophen/ Codeine Phosphate 2 tab 2 tab ONCE PRN PO Moderate to Severe Pain (4-10) 05/05/16 15:30 05/06/16 14:26 DC Lactated Ringer's 1,000 ml @ 2,000 mls/hr Q30M PRN IV PRE-EPIDURAL BOLUS 05/05/16 16:00 05/06/16 14:26 DC Oxytocin/Lactated Ringer's 500 ml @ 0 mls/hr ONCE PRN IV For Hemorrhage Management 05/05/16 15:30 05/06/16 14:26 DC Methylergonovine Maleate (Methergine) 0.2 mg ONCE PRN IM VAGINAL BLEEDING 05/05/16 15:30 05/06/16 14:26 DC Carboprost Tromethamine (Hemabate) 250 mcg ONCE PRN IM VAGINAL BLEEDING 05/05/16 15:30 05/06/16 14:26 DC Misoprostol 1000 mcg 1,000 mcg ONCE PRN [place] VAGINAL BLEEDING 05/05/16 15:30 05/06/16 14:26 DC Cefazolin Sodium/ Dextrose 50 ml @ 100 mls/hr ONCE ONCE IVPB 05/06/16 09:00 05/06/16 09:29 DC Cefazolin Sodium/ Dextrose (Ancef 2 Gm/50 ml (Pmx)) 50 ml @ ud STK-MED ONCE IVPB 05/06/16 08:52 05/06/16 08:53 DC Morphine Sulfate (Duramorph) 10 mg STK-MED ONCE .ROUTE 05/06/16 10:22 05/06/16 10:23 DC Fentanyl (Sublimaze) 100 mcg STK-MED ONCE .ROUTE 05/06/16 10:22 05/06/16 10:23 DC Phenylephrine HCl (Michael-Synephrine Inj Syg) 500 mcg STK-MED ONCE .ROUTE 05/06/16 10:22 05/06/16 10:23 DC Ondansetron HCl (Zofran Inj) 4 mg STK-MED ONCE .ROUTE 05/06/16 10:41 05/06/16 10:42 DC Dexamethasone (Decadron) 4 mg STK-MED ONCE .ROUTE 05/06/16 10:41 05/06/16 10:42 DC Cefazolin Sodium (Ancef) 1 gm STK-MED ONCE .ROUTE 05/06/16 10:51 05/06/16 10:52 DC Naloxone HCl (Narcan) 0.1 mg Q2M PRN IV FOR RESP RATE 8 OR LESS 05/06/16 12:00 05/07/16 11:59 DC Hydromorphone HCl (Dilaudid) 0.2 mg Q3H PRN IV PAIN LEVEL 1-5 05/06/16 12:00 05/07/16 11:59 DC Hydromorphone HCl (Dilaudid) 0.4 mg Q3H PRN IV PAIN LEVEL 6-10 05/06/16 12:00 05/07/16 11:59 DC 05/07/16 10:52 Diphenhydramine HCl (Benadryl) 25 mg Q6H PRN IV ITCHING 05/06/16 12:00 05/07/16 11:59 DC 05/06/16 14:32 Ondansetron HCl (Zofran Inj) 4 mg Q6H PRN IV NAUSEA AND/OR VOMITING 05/06/16 12:00 05/07/16 11:59 DC 05/06/16 13:37 Prochlorperazine (Compazine Inj) 10 mg ONCE PRN IV NAUSEA AND/OR VOMITING 05/06/16 12:00 05/07/16 11:59 DC Zolpidem Tartrate (Ambien) 5 mg HS MAY REPEAT X 1 PRN PO INSOMNIA 05/06/16 12:00 05/06/16 14:26 DC Acetaminophen/ Codeine Phosphate (Tylenol No.3) 1 tab Q4H PRN PO PAIN LEVEL 4-6 05/06/16 14:30 Acetaminophen/ Codeine Phosphate (Tylenol No.3) 2 tab Q4H PRN PO PAIN LEVEL 7-10 05/06/16 14:30 05/07/16 13:57 Oxycodone/ Acetaminophen (Percocet (5/ 325)) 1 tab Q4H PRN PO PAIN LEVEL 4-6 05/06/16 14:30 Oxycodone/ Acetaminophen (Percocet (5/ 325)) 2 tab Q4H PRN PO PAIN LEVEL 7-10 05/06/16 14:30 Ibuprofen (Motrin) 600 mg Q6 PO 05/07/16 12:00 05/07/16 18:19 Simethicone (Mylicon) 160 mg Q8H PRN PO DISTENSION/GAS/BLOATING 05/06/16 14:30 05/07/16 09:05 Senna/Docusate Sodium (Senokot-S) 1 tab BID PO 05/07/16 09:00 05/07/16 09:05 Lanolin (Mjg-O-Juemsc) 1 applic BEDSIDE MEDICATION PRN TOP BEDSIDE FOR JESSY TO NIPPLES 05/06/16 14:30 Diphtheria/ Tetanus/Acell Pertussis 0.5 ml 0.5 ml ONCE ONCE IM* 05/09/16 09:00 05/09/16 09:01 Oxytocin/Lactated Ringer's 500 ml @ 0 mls/hr ONCE PRN IV For Hemorrhage Management 05/06/16 14:30 Methylergonovine Maleate (Methergine) 0.2 mg ONCE PRN IM VAGINAL BLEEDING 05/06/16 14:30 Carboprost Tromethamine (Hemabate) 250 mcg ONCE PRN IM VAGINAL BLEEDING 05/06/16 14:30 Misoprostol 1000 mcg 1,000 mcg ONCE PRN [place] VAGINAL BLEEDING 05/06/16 14:30 Cefazolin Sodium 50 ml @ 100 mls/hr ONCE IVPB 05/06/16 14:30 05/06/16 14:59 DC 05/06/16 14:30 Oxytocin/Lactated Ringer's 500 ml @ 125 mls/hr Q4H IV 05/06/16 14:21 05/07/16 03:20 SANTA FIORE MD May 07, 2016 18:36
[2016-05-07 19:40] VITALS: BP 107/53; PULSE 57; RESP 18
[2016-05-08 04:00] VITALS: BP 108/74; PULSE 69; RESP 18
[2016-05-08] MEDS: IBUPROFEN 600 MG TAB PO SCH ×3 (05:47→18:51)
[2016-05-08 08:00] VITALS: BP 106/51; PULSE 78; RESP 20
--- NOTE | 2016-05-08 10:20 | PN ---
Date/Time of Note Date/Time of Note DATE: 05/08/16 TIME: 10:19 OB Subjective Subjective Subjective Post day 2 Vital sign a stable afebrile abdomen soft vision dry sounds present no bowel movement extremity normal ambulation and Fleet Enema recommended SANTA FIORE MD May 08, 2016 10:20
[2016-05-08] MEDS ORDERED: NA PHOSPHATE/BIPHOS 133 ML ENEMA PR ONE (10:30)
[2016-05-08] MEDS: ACETAMINOPHEN/CODEINE #3 TAB PO PRN (11:03)
[2016-05-08] MEDS: SENNA/DOCUSATE NA (8.6MG/50MG) TAB PO SCH ×2 (11:03→21:41)
[2016-05-08 12:46] VITALS: BP 117/79; PULSE 78; RESP 18
[2016-05-08 19:50] VITALS: BP 123/83; PULSE 76; RESP 18
[2016-05-09] MEDS: IBUPROFEN 600 MG TAB PO SCH ×3 (00:16→13:04)
[2016-05-09 04:00] VITALS: BP 116/75; PULSE 69; RESP 18
[2016-05-09 08:15] VITALS: BP 123/90; PULSE 68; RESP 18
[2016-05-09] MEDS: SENNA/DOCUSATE NA (8.6MG/50MG) TAB PO SCH (09:00)
[2016-05-09] MEDS ORDERED: DIPHTH/TET/ACEL PERTUSS (ADULT) 0.5 ML VIAL IM* ONE (09:00)
--- NOTE | 2016-05-09 10:08 | DS ---
Date/Time of Note Date/Time of Note DATE: 05/09/16 TIME: 10:06 Obstetrical Discharge Record Final Diagnosis Final Diagnosis: Term delivered Section Section: Primary Complications Preg induced Hypertension Condition on Discharge Physical Assessment Last Vitals: Vital sign a stable afebrile abdomen soft uterus firm lochia normal incision healing well bowel sounds present patient had normal bowel movement discharged home to follow-up instructions to be seen at the clinic in 5 days Voiding: Yes Breast: Soft, non-tender, Filling Fundus: Firm Abdomen and Incision: Healing well and dry Calf Tenderness: No Patient Condition: Good SANTA FIORE MD May 09, 2016 10:08
--- NOTE | 2016-05-09 10:09 | PD.PPDC ---
TARIFF INSPECTOR Discharge Instruction Condition Patient Condition: Good Activity/Restrictions Activity: Normal Activity May Shower Restrictions: No Exercising No Lifting No Driving No Sexual Activity Nothing in the Vagina No [place] No Tampons, douche Wound/Drain Care Instructions Wound/Drain Care Instructions: Remove Steri Strips in 1 week Follow-up Follow-up with Physician: 5, Day/Days Return to clinic for ELECTRIFIER OPERATOR Instructions: Fever greater than 101 Worsening abdominal pain Excessive Vaginal Bleeding Unable to tolerate diet OB Instructions: Breast Tenderness Headache Surgical Instructions: Incisional Drainage Incisional Redness SANTA FIORE MD May 09, 2016 10:08
== END 2016-05-09 13:15 | disposition home or self-care (01) | DRG 766 ==
LOC: OBT 13:28 → L-D 13:30 → OBT 18:00 → OBG 18:00 → OBSVTOIN 18:00 → INTOOBSV 18:00 → L-D 20:03 → PP1 05-06 14:57
PROVIDERS: ADMIT Obstetrics & Gynecology; ATTEND Obstetrics & Gynecology
PROC: 10D00Z1 Extraction of Products of Conception, Low, Open Approach (ICD-10-PCS; principal; 2016-05-06 11:00)
DX: O61.0 Failed medical induction of labor (principal); O99.824 Streptococcus B carrier state complicating childbirth; O69.81X0 Labor and delivery complicated by cord around neck, without compression, not applicable or unspecified; Z3A.38 38 weeks gestation of pregnancy; Z37.0 Single live birth
CPT/HCPCS: 36415; 76818; 80053; 81003; 84132; 84560; 85025; 85384; 85610; 85730; 86592; 86850; 86900; 86901; 87340; 90715; 94760; 99464; G0463; J0290; J0690; J1100; J1170; J1200; J2274; J2370; J2405; J2590; J3010; J3480; J7120

== ENCOUNTER 2017-02-07 10:35 | Emergency (ER) | payer OTHER ==
[~2017-02-07] VITALS: Ht 165.1 cm; Wt 85.0 kg
[2017-02-07 10:37] VITALS: Ht 165.1 cm; Wt 85.0 kg
[2017-02-07] MEDS ORDERED: AMOX500C2 PO (11:58)
[2017-02-07] MEDS ORDERED: IBUP-1542 PO (11:58)
[2017-02-07] MEDS ORDERED: HYDROCODONE/APAP (5/325) TAB PO ONE (12:00)
--- NOTE | 2017-02-07 12:03 | ERD ---
ER Documentation Chief Complaint Date/Time DATE: 02/07/17 TIME: 11:59 Chief Complaint right ear pain since last night HPI A 21-year-old female presents to ED for concerns of right ear pain which started last night. Patient denies any active drainage or pain. Patient states she did have a temperature 101 last night which she took Tylenol for. Patient denies taking any antipyretics today. Patient denies any nausea, vomiting, throat pain, cough, rhinorrhea, abdominal pain. Patient does report using Q-tips. Patient also states she is unsure if she got water in your washout with her daughter. ROS All systems reviewed and are negative except as per history of present illness. Medications Home Meds Active Scripts Ibuprofen* (Motrin*) 600 Mg Tab, 600 MG PO Q6, #30 TAB Prov:BRADEN TOVAR PA-C 02/07/17 Amoxicillin* (Amoxicillin*) 500 Mg Cap, 500 MG PO BID for 10 Days, CAP Prov:BRADEN TOVAR PA-C 02/07/17 Reported Medications Folic Acid* (Folic Acid*) 1 Mg Tablet, 1 MG PO DAILY, TAB 04/28/16 Multivit/Min/Fol Ac/Iron/Pren* ( S*) 1 Tab Tab, 1 TAB PO DAILY, TAB 04/28/16 Allergies Allergies: Coded Allergies: No Known Drug Allergies (Verified Allergy, Mild, 01/01/12) PMhx/Soc History of Surgery: Yes (c-sectionx1) Anesthesia Reaction: No Hx Neurological Disorder: No Hx Respiratory Disorders: No Hx Cardiac Disorders: No Hx Psychiatric Problems: No Hx Miscellaneous Medical Probl: No Hx Alcohol Use: No Hx Substance Use: No Hx Tobacco Use: No Smoking Status: Never smoker Physical Exam Vitals Vital Signs Date Time Temp Pulse Resp B/P Pulse Ox O2 Delivery O2 Flow Rate FiO2 02/07/17 10:37 98.9 85 18 117/84 99 Physical Exam GENERAL: Well-developed, well-nourished female. Appears in no acute distress. HEAD: Normocephalic, atraumatic. No deformities or ecchymosis. EYE: Pupils equal, round, and reactive to light. EOMs intact. No conjunctival erythema. No eye discharge. ENT: External ear without any masses or tenderness. Right auditory canal erythematous and swollen. R TM appears erythematous and bulging. Nasal mucosa pink with no discharge. Oropharynx is pink without any tonsillar erythema or exudates. No uvula deviation. No kissing tonsils. Minimally tender to palpation of the mastoid process. No swelling noted. NECK: Supple. No meningismus. Normal ROM of the neck. LUNGS: Clear to auscultation bilaterally. No rhonchi, wheezing, rales or coarse breath sounds. HEART: Regular rate and rhythm. No murmurs, rubs or gallops. BACK: No midline tenderness. EXTREMITIES: Equal pulses bilaterally. No peripheral clubbing, cyanosis or edema. No unilateral leg swelling. NEUROLOGIC: Alert and oriented to person, place and time. Moving all four extremities. 5/5 strength in all extremities. Normal speech. Steady gait. ( SKIN: Normal color. Warm and dry. No rashes or lesions. Results 24 hrs Current Medications Medications (Trade) Dose Ordered Sig/Evy Route PRN Reason Start Time Stop Time Status Last Admin Dose Admin Acetaminophen/ Hydrocodone Bitart (Prentice (5/325)) 1 tab ONCE ONCE PO 02/07/17 12:00 02/07/17 12:01 DC 02/07/17 12:08 Procedures/MDM MEDICAL DECISION MAKING: Patient is a 21-year-old female presents with right ear pain 1 day. Vital signs were reviewed. Patient was afebrile. Patient was not hypoxic. ENT exam revealed findings consistent with acute otitis media and otitis externa. Urine test is negative. Patient was given Prentice here for her pain. Low suspicion for tympanic membrane perforation, mastoiditis, otic barotrauma, TMJ dysfunction, pharyngitis, meningitis, sepsis. PRESCRIPTIONS: Amoxicillin, ibuprofen DISCHARGE: At this time, patient is stable for discharge and outpatient management. I have instructed the patient to follow-up with his/her primary care physician in 1-2 days. I have discussed with the patient the possibility of needing to see a specialist for further workup and diagnostic studies if the pain persists. I have instructed the patient to promptly return to the ER at any time for any new or worsening symptoms including increased pain, fever, swelling, discharge or hearing loss. The patient and/or family expressed understanding of and agreement with this plan. All questions were answered. Home care instructions were provided. Departure Diagnosis: Primary Impression: Acute otitis media Otitis media type: unspecified Qualified Code: H66.90 - Acute otitis media, unspecified otitis media type Condition: Stable Patient Instructions: Otitis Media, Abx Tx (Adult) Referrals: [facility] (PCP) Additional Instructions: Call your primary care doctor TOMORROW for an appointment during the next 1-2 days.See the doctor sooner or return here if your condition worsens before your appointment time. BRADEN TOVAR PA-C Feb 07, 2017 12:03
== END 2017-02-07 12:37 | disposition home or self-care (01) ==
LOC: FTE 10:35
DX: H66.91 Otitis media, unspecified, right ear (principal)
CPT/HCPCS: Z7502; Z7610; 99283

== ENCOUNTER 2017-02-09 17:25 | Emergency (ER) | payer OTHER ==
[~2017-02-09] VITALS: Ht 165.1 cm; Wt 90.0 kg
[~2017-02-09 17:25] MED LIST changes: +AMOX500C2 PO; +IBUP-1542 PO
[2017-02-09 17:27] VITALS: Ht 165.1 cm; Wt 90.0 kg
[2017-02-09] MEDS ORDERED: CIPR7.5D4 RIGHT EAR (17:47)
[2017-02-09] MEDS ORDERED: HYDR-906 PO (17:48)
--- NOTE | 2017-02-09 17:56 | ERD ---
ER Documentation Chief Complaint Date/Time DATE: 02/09/17 TIME: 17:54 Chief Complaint Complains of right earache since saturday HPI 21-year-old female presents with right ear pain for last 3 days. She denies fevers, cough, congestion. She feels like there is liquid in her ear. She states pain may have started when she noticed some water getting her right ear while bathing her child. Was seen earlier in the week and prescribed amoxicillin for possible otitis media ROS All systems reviewed and are negative except as per history of present illness. Medications Home Meds Active Scripts Hydrocodone/Acetaminophen (Waldron 5-325 Tablet) 1 Each Tablet, 1 TAB PO Q6H Y for PAIN, #7 TAB Prov:DARIN HOWARD MD 02/09/17 Ciprofloxacin Hcl/Dexameth (Ciprodex Otic Suspension) 7.5 Ml Drops.susp, 4 DROP RIGHT EAR BID for 7 Days, EA Prov:DARIN HOWARD MD 02/09/17 Ibuprofen* (Motrin*) 600 Mg Tab, 600 MG PO Q6, #30 TAB Prov:BRADEN TOVAR PA-C 02/07/17 Amoxicillin* (Amoxicillin*) 500 Mg Cap, 500 MG PO BID for 10 Days, CAP Prov:BRADEN TOVAR PA-C 02/07/17 Reported Medications Folic Acid* (Folic Acid*) 1 Mg Tablet, 1 MG PO DAILY, TAB 04/28/16 Multivit/Min/Fol Ac/Iron/Pren* ( S*) 1 Tab Tab, 1 TAB PO DAILY, TAB 04/28/16 Allergies Allergies: Coded Allergies: No Known Drug Allergies (Verified Allergy, Mild, 01/01/12) PMhx/Soc History of Surgery: Yes (c-sectionx1) Anesthesia Reaction: No Hx Neurological Disorder: No Hx Respiratory Disorders: No Hx Cardiac Disorders: No Hx Psychiatric Problems: No Hx Miscellaneous Medical Probl: No Hx Alcohol Use: No Hx Substance Use: No Hx Tobacco Use: No Smoking Status: Never smoker Physical Exam Vitals Vital Signs Date Time Temp Pulse Resp B/P Pulse Ox O2 Delivery O2 Flow Rate FiO2 02/09/17 17:27 98.9 113 20 122/86 100 Physical Exam Const: [], [id number]. Head: Atraumatic Eyes: Normal Conjunctiva ENT: In with passive range of motion of the right external ear. Tender lymphadenitis on the right and infra-auricular area and decreased diameter the canal with moisture. TM appears grossly normal. No mastoid tenderness., Nose and Mouth. Neck: Full range of motion..~ No meningismus. Resp: Clear to auscultation bilaterally Cardio: Regular rate and rhythm, no murmurs Abd: Soft, non tender, non distended. Normal bowel sounds Skin: No petechiae or rashes Back: No midline or flank tenderness Ext: No cyanosis, or edema Neur: Awake and alert Psych: Normal Mood and Affect Results 24 hrs Current Medications Medications (Trade) Dose Ordered Sig/Evy Route PRN Reason Start Time Stop Time Status Last Admin Dose Admin Dexamethasone (Decadron) 8 mg ONCE ONCE PO 02/09/17 18:00 02/09/17 18:01 Acetaminophen/ Hydrocodone Bitart (Waldron (5/325)) 1 tab ONCE ONCE PO 02/09/17 18:00 02/09/17 18:01 Ceftriaxone Sodium (Rocephin) 1 gm ONCE ONCE IM 02/09/17 18:00 02/09/17 18:01 Lidocaine (Xylocaine 1% (Mdv) 20 ml) 20 ml ONCE ONCE SC 02/09/17 18:00 02/09/17 18:01 Procedures/MDM She presents with signs and symptoms of acute otitis externa. We will treat with Cipro Floxin eardrops, short course of Waldron and ibuprofen. Is given Waldron 5 mg for acute pain and it milligrams Decadron for lymphadenitis swelling. Additionally given Rocephin 1 g IM by request for improvement from a previous bladder infection. she may continue her amoxicillin although she does not appear to have otitis media. She should return for fevers, worsening redness, swelling, new worsening symptoms or primary care doctor. Is no evidence of abscess, mastoiditis, meningitis, sepsis. Departure Diagnosis: Primary Impression: External otitis Otitis externa type: unspecified type Chronicity: acute Laterality: right Qualified Code: H60.501 - Acute otitis externa of right ear, unspecified type Condition: Stable Patient Instructions: External Ear Infection (Adult) Additional Instructions: Check for new or worsening symptoms or primary care doctor. Continue current medications at home. DARIN HOWARD MD Feb 09, 2017 17:56
[2017-02-09] MEDS ORDERED: HYDROCODONE/APAP (5/325) TAB PO ONE (18:00)
[2017-02-09] MEDS ORDERED: LIDOCAINE 1% (MDV) 20 ML INJ SC ONE (18:00)
[2017-02-09] MEDS ORDERED: CEFTRIAXONE 1 GM INJ IM ONE (18:00)
[2017-02-09] MEDS ORDERED: DEXAMETHASONE 4 MG TAB PO ONE (18:00)
[2017-02-09 18:20] VITALS: BP 115/80; PULSE 67; RESP 18
== END 2017-02-09 18:20 | disposition home or self-care (01) ==
LOC: FTE 17:25
DX: H60.501 Unspecified acute noninfective otitis externa, right ear (principal)
CPT/HCPCS: 96372; J0696; Z7502; Z7610

== ENCOUNTER 2017-11-07 18:32 | Emergency (ER) | END 2017-11-07 19:42 | disposition left against medical advice (07) ==

== ENCOUNTER 2018-01-31 13:30 | Emergency (ER) | END 2018-01-31 17:36 | disposition home or self-care (01) ==

== ENCOUNTER 2018-06-15 17:55 | Inpatient (IN) | payer OTHER ==
[~2018-06-15] VITALS: Ht 165.1 cm; Wt 93.0 kg
[~2018-06-15 17:55] MED LIST changes: +ACET500C5 PO; +CIPR7.5D RIGHT EAR; +HYDR-4011 PO; +METHYLERGONOVINE 0.2 MG INJ ONE
[2018-06-15 18:05] VITALS: Ht 165.1 cm; Wt 93.0 kg
[2018-06-15 18:17] VITALS: BP 110/77; PULSE 100; RESP 18
--- NOTE | 2018-06-15 19:11 | TRIAGE ---
OB Triage Datetime Report Generated by CPN: 06/15/2018 19:10 Datetime: 06/15/2018 18:12 Labor Evaluation Monitor Mode: External Heart Rate Monitor Mode: External US Datetime: 06/15/2018 18:03 Assessment Type: Triage Maternal Assessment Level of Consciousness: Fully Conscious DTR's/Clonus: DTRs 2+; No Clonus Headache: Denies Blurred Vision: No Respiratory Effort: Unlabored; Regular Rhythm; Equal Expansion Breath Sounds, Left: Clear and Equal Breath Sounds, Right: Clear and Equal Nausea/Vomiting: Denies RUQ Epigastric Pain: Denies Lower Extremities Edema: None Degree: None Upper Extremities Edema: None Degree: None Facial Edema: None Fall Risk Assessment History of Falling: (0) No Secondary Diagnosis: (0) No Ambulatory Aid: (0) Bedrest/Nurse Assist IV Therapy: (0) No Gait: (0) Normal/Bedrest/Immobile Mental Status: (0) Oriented to Own Ability Fall Score: 0 Fall Risk Score Definition: No Risk: No action required Datetime: 06/15/2018 18:02 Time of Arrival: 06/15/2018 17:42 EGA: 39.1 Arrived By: Ambulatory Arrived From: Home Chief Complaint: PT. HERE C/O UC'S Movement: Present Contractions: Irregular Rupture of Membranes: Denies Vaginal Bleeding: None Vaginal Discharge: Denies Recent Sexual Intercouse: Denies Abdominal Trauma: Not Applicable Patient Complaints: Contractions; Cramping; Back Pain Time Provider Notified: 06/15/2018 18:55 Provider Notified: SAMANTHA Initial Plan: EFM/
--- NOTE | 2018-06-15 19:26 | PREAC ---
Date/Time of Note Date/Time of Note DATE: 06/15/18 TIME: 19:24 Anesthesia Eval and Record Evaluation Time Pre-Procedure Interview DATE: 06/15/18 TIME: 19:24 Age 22 Sex female NPO: Other soup @ 1600 Preoperative diagnosis repeat c section in labor Planned procedure c section Past Medical History Past Medical History: Includes : Gestational age: (37) Surgery & Anesthesia Issues Other issues Meds Anticoagulation: No Beta Dana within 24 hr: No Reason Beta Dana not given: Pt. not on B-Dana Reported Medications Multivit/Min/Fol Ac/Iron/Pren* ( S*) 1 Tab Tab, 1 TAB PO DAILY, TAB 04/28/16 Discontinued Reported Medications Folic Acid* (Folic Acid*) 1 Mg Tablet, 1 MG PO DAILY, TAB 04/28/16 Discontinued Scripts Acetaminophen* (Tylophen*) 500 Mg Capsule, 1 CAP PO Q6H PRN for PAIN AND OR ELEVATED TEMP, #15 CAP Prov:DARIN HOWARD MD 01/31/18 Amoxicillin* (Amoxicillin*) 500 Mg Cap, 500 MG PO TID for 10 Days, CAP Prov:DARIN HOWARD MD 01/31/18 Hydrocodone/Acetaminophen (Lawrence 5-325 Tablet) 1 Each Tablet, 1 TAB PO Q6H PRN for PAIN, #7 TAB Prov:DARIN HOWARD MD 02/09/17 Ciprofloxacin Hcl/Dexameth (Ciprodex Otic Suspension) 7.5 Ml Drops.susp, 4 DROP RIGHT EAR BID for 7 Days, EA Prov:DARIN HOWARD MD 02/09/17 Ibuprofen* (Motrin*) 600 Mg Tab, 600 MG PO Q6, #30 TAB Prov:BRADEN TOVAR PA-C 02/07/17 Amoxicillin* (Amoxicillin*) 500 Mg Cap, 500 MG PO BID for 10 Days, CAP Prov:BRADEN TOVAR PA-C 02/07/17 Meds reviewed: Yes Allergies Coded Allergies: No Known Drug Allergies (Verified Allergy, Mild, 01/31/18) Allergies Reviewed: Yes Labs/Studies Labs Reviewed: Reviewed by anesthesiologist test: Positive Studies: ECG (n/a), CXR (n/a) Pre-procedure Exam Last vitals Vital Signs Date Temp Pulse Resp B/P (MAP) Pulse Ox O2 O2 Flow FiO2 Time Delivery Rate 06/15/18 98.4 100 18 110/77 Room Air 18:17 (88) Airway: Adequate mouth opening Mallampati: Mallampati I Teeth: Normal Lung: Normal Heart: Normal ASA Physical Status ASA physical status: 2 Emergency: E Planned Anesthetic Neuraxial: Spinal Planned Pain Management Sub-arachniod narcotics Pre-operative Attestations Prior to commencing anesthesia and surgery, the patient was re-evaluated, there was verification of: *The patient's identity *The results of appropriate recent lab work and preoperative vital signs *The above evaluation not changing prior to induction *Anesthetic plan, risk benefits, alternative and complications discussed with p atient/family; questions answered; patient/family understands, accepts and wishes to proceed. ROGER WOODRUFF MD Jun 15, 2018 19:26
[2018-06-15] MEDS ORDERED: LACTATED RINGER'S 1,000 ML IV SCH (20:10)
[2018-06-15] MEDS ORDERED: LACTATED RINGER'S 1,000 ML IV PRN (20:10)
[2018-06-15] MEDS ORDERED: OXYTOCIN 30 UNITS/LR 500 ML IV PRN ×2 (20:30→22:30)
[2018-06-15] MEDS ORDERED: CEFAZOLIN 2 GM/50 ML (PMX) 50 ML IVPB SCH (20:30)
[2018-06-15] MEDS ORDERED: CITRIC ACID/NA CITRATE 30 ML CUP PO ONE (20:30)
[2018-06-15] MEDS ORDERED: METHYLERGONOVINE 0.2 MG INJ IM PRN ×2 (20:30→22:30)
[2018-06-15] MEDS ORDERED: CARBOPROST 250 MCG INJ IM PRN ×2 (20:30→22:30)
[2018-06-15] MEDS ORDERED: MISOPROSTOL 200 MCG TAB PR PRN ×2 (20:30→22:30)
[2018-06-15] MEDS ORDERED: OXYTOCIN 30 UNITS/LR 500 ML IV SCH ×2 (20:30→22:04)
[2018-06-15] MEDS ORDERED: OXYTOCIN 30 UNITS/LR 500 ML IV ONE (20:44)
[2018-06-15] MEDS ORDERED: ONDANSETRON 4 MG INJ ONE (20:44)
[2018-06-15] MEDS ORDERED: METOCLOPRAMIDE 10 MG INJ ONE (20:44)
[2018-06-15] MEDS ORDERED: KETOROLAC 30 MG INJ ONE (20:44)
[2018-06-15] MEDS ORDERED: morphine SULFATE/PF (10 MG/10 ML) INJ ONE (20:47)
[2018-06-15] MEDS ORDERED: PHENYLephrine (100 MCG/ML) 10ML SYG ONE (20:55)
[2018-06-15] MEDS ORDERED: EPHEDrine 25 MG/5 ML SYG ONE (21:39)
--- NOTE | 2018-06-15 22:04 | OPPN ---
Date/Time of Note Date/Time of Note DATE: 06/15/18 TIME: 22:02 Operative Report Planned Procedure Procedure date Jun 15, 2018 Procedure(s) repeat low transverse CD Performed by see signature line Orange Picker Machine Operator: NAVIN WOODS 2nd Orange Picker Machine Operator none Pre-procedure diagnosis iup at 39 wks ga, desires elective repeat CD, declined [id number] Anesthesia Type: Hkgat5y spinal Post-Procedure Post-procedure diagnosis same Findings a viable male 8/9 weight 7lbs 12 oz. normal uterus tubes and ovaries Estimated Blood Loss: 500 - 600 mls Specimen(s) none Grafts/Implant(s) none Complication(s) none DAVID SINGH MD Jun 15, 2018 22:04
--- NOTE | 2018-06-15 22:06 | PAC ---
Date/Time of Note Date/Time of Note DATE: 06/15/18 TIME: 22:05 Post-Anesthesia Notes Post-Anesthesia Note Last documented vital signs Vital Signs Date Temp Pulse Resp B/P (MAP) Pulse Ox O2 O2 Flow FiO2 Time Delivery Rate 06/15/18 98.4 100 18 110/77 Room Air 18:17 (88) BP 101/69, Sat 97%, temp 97.9 RR18, HR 81 Activity: WNL Respiratory function: WNL Cardiovascular function: WNL Mental status: Baseline Pain reasonably controlled: Yes Hydration appropriate: Yes Nausea/Vomiting absent: No ROGER WOODRUFF MD Jun 15, 2018 22:06
[2018-06-15] MEDS ORDERED: ONDANSETRON 4 MG INJ IV PRN ×3 (22:30)
[2018-06-15] MEDS ORDERED: NACL 0.9% 3 ML SYG IV SCH (22:30)
[2018-06-15] MEDS ORDERED: OXYCODONE/ACETAMINOPHEN (5/325) TAB PO PRN ×2 (22:30)
[2018-06-15] MEDS ORDERED: DIPHENHYDRAMINE 50 MG INJ IV PRN ×3 (22:30)
[2018-06-15] MEDS ORDERED: morphine (1 MG/ML) 10ML SYRINGE IV PRN ×3 (22:30)
[2018-06-15] MEDS ORDERED: KETOROLAC 30 MG INJ IV PRN ×3 (22:30)
[2018-06-15] MEDS ORDERED: NALOXONE (0.4 MG/ML) INJ IV PRN ×2 (22:30)
[2018-06-15] MEDS ORDERED: morphine 2 MG INJ IV PRN ×6 (22:30)
[2018-06-15] MEDS: CEFAZOLIN 2 GM/50 ML (PMX) 50 ML IVPB SCH (23:34)
[2018-06-16] VITALS (7 sets, daily range): BP systolic 103–116; BP diastolic 69–75; PULSE 72–90; RESP 18
[2018-06-16] MEDS ORDERED: METOCLOPRAMIDE 10 MG INJ IV PRN (00:30)
[2018-06-16] MEDS ORDERED: METOCLOPRAMIDE 10 MG INJ ONE (00:34)
--- NOTE | 2018-06-16 00:38 | PREOPHP ---
DATE OF ADMISSION: 06/15/2018 HISTORY OF PRESENT ILLNESS: Ms. Lupe Patiño is a 22-year-old 3, para 1, EDC of 019, intrauterine at 39 weeks and 1 day gestational age with a history of previous C-sectio n x1, presented to triage complaining of uterine contractions since last night. She denies any vagin al bleeding or discharge. Her care took place with Dr. Gallego. PAST MEDICAL HISTORY: None. MEDICATIONS: vitamins. PAST SURGICAL HISTORY: x1 previous , x1 D and C. OBSTETRIC HISTORY: x1 , x1 missed AB. GYNECOLOGIC HISTORY: 10, regular 3 to 4 days. Denies any sexually transmitted disease. Sexually ac tive with 1 partner. SOCIAL HISTORY: Denies any smoking, drugs or alcohol. FAMILY HISTORY: None. REVIEW OF SYSTEMS: All within normal except history of present illness. PHYSICAL EXAMINATION: HEENT: Within normal. LUNGS: CTA bilateral. CARDIOVASCULAR: S1, S2. Regular rate, rhythm. ABDOMEN: Gravid, nontender. Negative CVA bilateral. EXTREMITIES: Negative edema. No calf tenderness. PELVIC: Vaginal exam deferred. heart tracing category 1. Tocometer: Irregular contractions. ASSESSMENT: Intrauterine at 39 weeks and 1 day gestational age with irregular uterine cont ractions, desires elective repeat delivery, declined vaginal after . PLAN: Consent for repeat delivery. Risks, benefits and alternatives were explained. All q uestions were answered. Dictated By: DAVID RUIZ/XOCHITL Conf#: [id number] DID#: [id number]
--- NOTE | 2018-06-16 01:39 | OPR ---
DATE OF OPERATION: 06/15/2018 PREOPERATIVE DIAGNOSES: Intrauterine at 39 weeks gestational age, previous delive ry x1, desires elective repeat delivery, declined . POSTOPERATIVE DIAGNOSES: Intrauterine at 39 weeks gestational age, previous deliv fariba x1, desires elective repeat delivery, declined . OPERATION PERFORMED: Repeat low transverse delivery. SURGEON: Andrew Mccoy MD WEIGHT REDUCTION SPECIALIST: Isaiah Fink MD ANESTHESIA: Spinal. COMPLICATIONS: None. ESTIMATED BLOOD LOSS: 500 mL. FINDINGS: A viable male, 8 and 9 respectively at 1 and 5 minutes, weight 7 pounds 12 ounces. Normal uterus, tubes and ovaries. DESCRIPTION OF PROCEDURE: After explaining the risks, benefits and alternatives, the patient and con sent signed in chart, the patient was taken to the operating room where spinal anesthesia was found t o be adequate. She was then prepared and draped in normal sterile fashion in dorsal supine position with a leftward tilt. A Pfannenstiel skin incision was made with a scalpel and carried to the underl may layer of the fascia. The fascia was incised in the midline and incision was extended laterally with Bell scissors. The superior aspect of the fascial incision was grasped with curved clamps, elev ated and the underlying rectus muscles dissected off bluntly. Attention was then turned to the infer ior aspect incision which in similar fashion was grasped with curved clamps, elevated and the rectus muscles dissected off bluntly. The rectus muscles were in midline and the peritoneum ident ified, tented up and entered sharply with Metzenbaum scissors. The peritoneal incision was extended superiorly with good visualization of bladder. The bladder blade was inserted and the vesicouterine identified, grasped with pickups and sharply with Metzenbaum scissors. This incision was extended la terally and the bladder flap created digitally. The bladder blade was then reinserted and the lower segment incised in transverse fashion with a scalpel. The uterine incision was extended laterally. The bladder blade was removed and the 's head delivered atraumatically. The nose and mouth wer e suctioned and cord clamped and cut. The was handed off to awaiting lab courier. The place nta was then removed. The uterus extracted of all clots and debris. The uterine incision was repair ed with 1-0 chromic in a running locked fashion. A second layer of same suture was used for imbricat ion obtaining excellent hemostasis. The uterus was returned to the abdomen. The gutters were cleare d of all clots and the peritoneum and rectus abdominis muscles were reapproximated with 3-0 Vicryl in an interrupted fashion. The fascia was reapproximated with 0 Vicryl in a running fashion. The subc utaneous tissue was reapproximated with 2-0 plain gut in a running fashion. The skin was closed with absorbable sean. The patient tolerated procedure well. All counts were correct. The patient wa s taken to recovery room in stable condition. Dictated By: ANDREW RUIZ/XOCHITL Conf#: [id number] DID#: [id number]
[2018-06-16] MEDS: CEFAZOLIN 2 GM/50 ML (PMX) 50 ML IVPB SCH ×2 (06:27→15:14)
--- NOTE | 2018-06-16 08:07 | OPPN ---
Date/Time of Note Date/Time of Note DATE: 06/16/18 TIME: 08:06 Anesthesia Follow up Anesthesia Follow up Last documented vital signs Vital Signs Date Temp Pulse Resp B/P (MAP) Pulse Ox O2 O2 Flow FiO2 Time Delivery Rate 06/16/18 97.6 72 18 114/74 Room Air 05:30 (87) 06/16/18 96 01:20 Respiratory function: WNL Cardiovascular function: WNL Comments A 22 year female s/pspinal duramorph POD #1 is doing fine. No pain, N/V, headache, itchuing, neural deficit. ROGER WOODRUFF MD Jun 16, 2018 08:07
[2018-06-16] MEDS: SENNA/DOCUSATE NA (8.6MG/50MG) TAB PO SCH ×2 (09:41→21:20)
[2018-06-16] MEDS: IBUPROFEN 600 MG TAB PO SCH (23:00)
--- NOTE | 2018-06-17 03:05 | QN ---
Documentation Comment progress note pod 1 late entry 06/16/17 patient seen and evaluated no complaints vs stable afebrile ab dressing clean/dry no distention extremity no edema no calf tenderness a/ sp repeat cd pod 1 stable afebrile p/ encourage ambulation DAVID SINGH MD Jun 17, 2018 03:05
--- NOTE | 2018-06-17 03:06 | QN ---
Documentation Comment progress note pod 2 patient seen and evaluated no complaints vs stable afebrile ab dressing clean/dry no distention extremity no edema no calf tenderness a/ sp repeat cd pod 2 stable afebrile p/ encourage ambulation remove dressing f/u cbc DAVID SINGH MD Jun 17, 2018 03:06
[2018-06-17 03:49] VITALS: BP 106/78; PULSE 80; RESP 18
[2018-06-17] MEDS: IBUPROFEN 600 MG TAB PO SCH ×5 (05:54→23:38)
[2018-06-17 08:20] VITALS: BP 107/70; PULSE 84; RESP 20
[2018-06-17] MEDS: SENNA/DOCUSATE NA (8.6MG/50MG) TAB PO SCH ×2 (08:37→20:38)
[2018-06-17 16:10] VITALS: BP 116/78; PULSE 93; RESP 18
[2018-06-17 20:30] VITALS: BP 107/85; PULSE 87; RESP 20
--- NOTE | 2018-06-18 03:53 | PD.PPDC ---
LAMINA SEARCHER Discharge Instruction Condition [id number] Patient Condition: Ddzib8y Good Diet Quuvi7Wr Diet: Rrsiv3w Resume Regular Diet Activity/Restrictions [id number] Activity: Ayubd6g Normal Activity May Shower [id number] Restrictions: Xrude6l No Exercising No Lifting No Driving No Sexual Activity Nothing in the Vagina No [place] No Tampons, douche Wound/Drain Care Instructions Dbtwd1Dm Wound/Drain Care Syqiu4n Remove Steri Strips in 2 Instructions: weeks Follow-up Follow-up with Physician: 2, Week/Weeks Return to clinic for Qnaoq4Vh CARD DOFFER Instructions: Sdwjj8p Fever greater than 101 Chills Worsening abdominal pain Excessive Vaginal Bleeding More than 2 pads per hour Unable to tolerate diet Yyyob5Yy OB Instructions: Ewzfs4v Breast Tenderness Depression Blurried Vision Headache Fwmrh2Gm Surgical Instructions: Fmtrv8i Incisional Drainage Incisional Redness DAVID SINGH MD Jun 18, 2018 03:52
[2018-06-18 04:10] VITALS: BP 106/70; PULSE 85
--- NOTE | 2018-06-18 05:29 | DS ---
DATE OF ADMISSION: 06/15/2018 DATE OF DISCHARGE: 06/18/2018 PRIMARY DIAGNOSIS: Intrauterine at 39 weeks gestational age, previous delivery x1 , desires elective repeat delivery. Declined vaginal after . PROCEDURE: Repeat low transverse delivery. CONDITION ON DISCHARGE: Stable. ACTIVITY: None per vagina, no lifting x6 weeks. DIET: Regular. MEDICATIONS ON DISCHARGE: Motrin 800 mg p.o. q.8 hours p.r.n. severe pain. DISCHARGE SUMMARY: Ms. Lupe Patiño underwent a repeat delivery on 06/15/2018. She montez d a viable male, 8 and 9 respectively at 1 and 5 minutes, weight 7 pounds 12 ounces. She had a n uneventful postop day #1, #2, and #3. Her incision is clean, dry, and intact. She is ambulating, tolerating diet, positive flatulence, positive bowel movement. She will follow up in the clinic in 2 weeks for /postop care. Dictated By: DAVID RUIZ/XOCHITL Conf#: [id number] DID#: [id number]
[2018-06-18] MEDS: IBUPROFEN 600 MG TAB PO SCH ×2 (05:32→12:00)
[2018-06-18 08:55] VITALS: BP 98/65; PULSE 79; RESP 18
[2018-06-18] MEDS: SENNA/DOCUSATE NA (8.6MG/50MG) TAB PO SCH (09:44)
== END 2018-06-18 12:40 | disposition home or self-care (01) | DRG 788 ==
LOC: OBT 17:55 → L-D 17:56 → OBT 18:50 → L-D 20:55 → PP1 06-16 01:27
PROVIDERS: ADMIT Obstetrics & Gynecology; ATTEND Obstetrics & Gynecology
PROC: 10D00Z1 Extraction of Products of Conception, Low, Open Approach (ICD-10-PCS; principal; 2018-06-15 21:00)
DX: O34.211 Maternal care for low transverse scar from previous cesarean delivery (principal); Z3A.39 39 weeks gestation of pregnancy; Z37.0 Single live birth
CPT/HCPCS: 81003; 85025; 85610; 85730; 86592; 86850; 86900; 86901; 87340; 99464; G0463; J0690; J1885; J2210; J2274; J2370; J2405; J2590; J2765; J7120

== ENCOUNTER 2018-10-10 19:18 | Emergency (ER) | payer OTHER ==
[~2018-10-10] VITALS: Ht 165.1 cm; Wt 91.0 kg
[~2018-10-10 19:18] MED LIST changes: -ACET500C5 PO; -AMOX500C2 PO; -CIPR7.5D RIGHT EAR; -FOLI-49 PO; -HYDR-4011 PO; -IBUP-1542 PO; -METHYLERGONOVINE 0.2 MG INJ ONE
[2018-10-10 19:21] VITALS: Ht 165.1 cm; Wt 91.0 kg
[2018-10-10] MEDS ORDERED: KETOROLAC 30 MG INJ IM STA (21:29)
[2018-10-10] MEDS ORDERED: CEFTRIAXONE 1 GM INJ IM ONE (21:30)
[2018-10-10] MEDS ORDERED: NAPR-985 PO (21:43)
[2018-10-10] MEDS ORDERED: PRED20TA PO (21:43)
[2018-10-10] MEDS ORDERED: AMOX1TAB10 PO (21:43)
--- NOTE | 2018-10-10 21:46 | ERD ---
ER Documentation Chief Complaint Chief Complaint right ear ache x 5 days HPI 22-year-old female with past medical history of otitis externa presents to the emergency department complaining of right ear pain intermittently for the past 5 days. Symptoms have worsened. Symptoms are worse at night. Current pain is ra ryan moderate to severe. She was started on neomycin eardrops by her primary care doctor 2 days ago but has not had significant relief. She denies any fevers or chills or other symptoms at this time. ROS All systems reviewed and are negative except as per history of present illness. Medications Home Meds Active Scripts Naproxen* (Naprosyn*) 500 Mg Tablet, 500 MG PO BID PRN for PAIN AND/OR INFLAMMATION, #30 TAB Prov:ISABELLA MORALES PA-C 10/10/18 Prednisone* (Prednisone*) 20 Mg Tab, 40 MG PO DAILY for 4 Days, TAB Prov:ISABELLA MORALES PA-C 10/10/18 Amoxicillin/Potassium Clav (Amox-Clav 875-125 mg Tablet) 875-125 mg Tab, 1 TAB PO BID for 10 Days, #20 TAB Prov:ISABELLA MORALES PA-C 10/10/18 Reported Medications Multivit/Min/Fol Ac/Iron/Pren* ( S*) 1 Tab Tab, 1 TAB PO DAILY, TAB 04/28/16 Allergies Allergies: Coded Allergies: No Known Drug Allergies (Verified Allergy, Mild, 01/31/18) PMhx/Soc History of Surgery: Yes (c-sectionx1) Anesthesia Reaction: No Hx Neurological Disorder: No Hx Respiratory Disorders: No Hx Cardiac Disorders: No Hx Psychiatric Problems: No Hx Miscellaneous Medical Probl: No Hx Alcohol Use: No Hx Substance Use: No Hx Tobacco Use: No Smoking Status: Never smoker FmHx Family History: No diabetes Physical Exam Vitals Vital Signs Date Temp Pulse Resp B/P (MAP) Pulse Ox O2 O2 Flow FiO2 Time Delivery Rate 10/10/18 98.9 91 18 140/86 98 19:21 (104) Physical Exam Const: No acute distress Head: Atraumatic Eyes: Normal Conjunctiva ENT: Normal External Ears, Nose and Mouth. Right tympanic membrane is edematous with purulent material present. Tympanic membrane on the right is normal in appearance. Left tympanic membrane and EAC are normal. Neck: Full range of motion. No meningismus. Resp: Clear to auscultation bilaterally Cardio: Regular rate and rhythm, no murmurs Skin: No petechiae or rashes Ext: No cyanosis, or edema Neur: Awake and alert Psych: Normal Mood and Affect Results 24 hrs Current Medications Medications Dose Sig/Evy Start Time Status Last (Trade) Ordered Route PRN Stop Time Admin Dose Reason Admin Ceftriaxone 1 gm ONCE ONCE 10/10/18 DC Sodium IM 21:30 (Rocephin) 10/10/18 21:31 Ketorolac 30 mg ONCE STAT 10/10/18 DC Tromethamine IM 21:29 (Toradol) 10/10/18 21:31 Prednisone 40 mg ONCE ONCE 10/10/18 (Prednisone) PO 22:00 10/10/18 22:01 Procedures/MDM 22-year-old female presenting to the emergency department with signs and symptoms most consistent with right-sided otitis externa suggest meningitis, sepsis, mastoiditis, serious bacterial infection, or other emergencies. Patient was administered IM Rocephin and prednisone and IM Toradol in the department with good response. She is otherwise stable for discharge and further outpatient management with prescriptions. Patient was advised to return to the department immediately for any new or worsening or concerning symptoms and she demonstrated good understanding. Patient's blood pressure was elevated (>120/80) but appears stable without evidence of hypertension emergency or urgency. The patient is to follow-up and pursue outpatient monitoring and therapy with their primary care physician within 1 week and return immediately if they have any new, worsening, or concerning symptoms. Departure Diagnosis: Primary Impression: Otitis externa Condition: Fair Patient Instructions: External Ear Infection (Adult) Additional Instructions: Call your primary care doctor TOMORROW for an appointment during the next 1-2 days.See the doctor sooner or return here if your condition worsens before your appointment time. ISABELLA MORALES PA-C Oct 10, 2018 21:46
[2018-10-10] MEDS ORDERED: predniSONE 20 MG TAB PO ONE (22:00)
[2018-10-10 22:44] VITALS: BP 132/68; PULSE 88; RESP 17
== END 2018-10-10 22:44 | disposition home or self-care (01) ==
LOC: FTE 19:18
DX: H60.91 Unspecified otitis externa, right ear (principal)
CPT/HCPCS: 81025; 96372; J0696; J1885; J7512; Z7502; 81003